=== PATIENT | female | born 1965 | race Caucasian/White ===

== ENCOUNTER 2023-09-18 13:16 | Inpatient (IN) | payer OTHER, SELFPAY ==
[2023-09-18] VITALS (11 sets, daily range): BP systolic 96–162; BP diastolic 64–108; BMI 28.6; BMI 28.8
[2023-09-18 06:26] LABS: % Basophils 0.4 % (0-2); % Eosinophils 0.6 % (0-6); % Immature Granulocytes 0.4 % (0-0.5); % Lymphocytes 15.7 % (20.5-51.1); % Neutrophils 73.9 % (42.2-75.2); Absolute Basophils 0.1 10^3/uL (0-0.2); Absolute Eosinophils 0.1 10^3/uL (0-0.7); Absolute Immature Granulocytes 0.1 10^3/uL (0-0.05); Absolute Monocytes 1.1 10^3/uL (0.1-0.6); Absolute Neutrophils 9.3 10^3/uL (1.4-6.5); Hematocrit 40.1 % (37.0-47.0); Hemoglobin 12.8 g/dL (12.0-16.0); Mean Corp Hgb Conc. 31.9 g/dL (33.0-37.0); Mean Corpuscular Hgb 24.5 pg (27.0-31.0); Mean Corpuscular Volume 76.7 fL (81.0-99.0); Mean Platelet Volume 8.9 fL (7.4-10.4); Nucleated Red Blood Cells % 0 %; Platelet Count 338 10^3/uL (130-400); Red Blood Cell Count 5.23 10^6/uL (4.20-5.40); Red Cell Dist. Width 15.5 % (11.5-14.5); White Blood Cell Count 12.5 10^3/uL (4.8-10.8)
[2023-09-18 06:33] LABS: ALT (SGPT) 17 U/L (0-35); AST (SGOT) 24 U/L (14-36); Albumin 4.3 g/dl (3.5-5.0); Alkaline Phosphatase 89 U/L (38-126); Blood Urea Nitrogen 12 mg/dl (7-17); Calcium 9.8 mg/dl (8.4-10.2); Carbon Dioxide 28 mmol/L (22-30); Chloride 103 mmol/L (98-107); Glucose 132 mg/dl (70-99); Potassium 4.5 mmol/L (3.5-5.1); Sodium 136 mmol/L (135-145); Total Bilirubin 1.8 mg/dl (0.2-1.3); Total Protein 7.3 g/dl (6.3-8.2); eGFR > 60.00
--- NOTE | 2023-09-18 06:50 | ED.GENMED ---
History of Present Illness
General
Chief Complaint: Abdominal Pain
Source: patient
Exam Limitations: none
Time Seen by Provider: 09/18/23 06:50
Nursing documentation reviewed up to this point in time: agreed with
Travel History
Have you had any contact with someone who has COVID-19?: No
Do you have any symptoms of coronavirus? Fever > 100 degrees, chills, cough, shortness of breath, sore throat, loss of taste or smell, muscle aches, or headache?: No
History of Present Illness
History of Present Illness:
58-year-old female with history of abdominoplasty 8 yrs ago, diverticulitis Presents today she had 2 days of lower abdominal pain. It comes in waves, it was 10 out of 10 earlier this morning but now 7/10. Her last BM was 8:00 last night and
normal. She states her temperature was 100.5 last night with chills. She denies nausea or vomiting. Denies chest pain or trouble breathing.
Past History
Past History
ED Past Medical History: Other (diverticulitis)
ED Past Surgical History: Other (abdominoplasty)
Social History
Tobacco: Non-smoker
Alcohol: Occasional
Personal:
Living: with family
Employment: Employed
Review of Systems
Review of Systems
Allergies reviewed?: Yes
All Other Systems: ROS reviewed and negative except as documented in HPI and ROS
Constitutional: Reports fever and chills
Respiratory: Denies trouble breathing
Cardiac: Denies chest pain
ABD/GI: Reports abdominal pain; Denies nausea, vomiting, diarrhea, bloody stools or black stools
: Denies dysuria, frequency, flank pain, difficulty voiding or urgency
Musculoskeletal: Reports no symptoms
Skin: Reports no symptoms
Neurological: Reports no symptoms
Phy Exam
Physical Exam
Physical Exam:
GENERAL: No acute distress. A&Ox3.
CONSTITUTIONAL: Afebrile.
EYES:clear, conjunctivae normal
ENMT: moist mucus membranes, Pharynx nl
RESPIRATORY: Regular respirations, nonlabored, lungs clear.
CARDIOVASCULAR: Regular rate and rhythm, no murmurs, no rubs.
GI: Soft, generally moderately tender, normal BS
MUSCULOSKELETAL: Moves with ease. Well perfused.
SKIN: Warm, dry, pink
PSYCH: Normal mood and affect. Well kept, interactive and appropriate
NEUROLOGIC: Awake, alert and oriented. No focal neurological deficits
Course
Orders/Labs/Results
Orders:
Orders
09/18/23 Breakfast
NPO
Allow oral meds: Yes
Allow clear liquids: No
09/18/23 06:12
Complete Blood Count/With Diff Urgent
Comprehensive Metabolic Panel Urgent
Lipase Urgent
Comment: ADD ON
Urinalysis Reflex To Culture Urgent
Date Specimen was Collected: 09/18/23
Time Specimen was Collected: 06:04
09/18/23 06:56
Iohexol [Omnipaque] See Protocol PO NOW STA
09/18/23 06:57
CT Abd/pel W Iv And Oral Contr Urgent
Comment:
Reason For Exam: lower abd pain, hx diverticulitis
0.9% Sodium Chloride 1000 ml [Nss] 1,000 ml IV BOLUS
Ketorolac [Toradol] 15 mg IV NOW STA
09/18/23 06:58
Add On- LAB Urgent
Tests Added?: Lipase
09/18/23 10:36
Piperacillin/Tazo 3.375 Gram [Zosyn] 3.375 gram in 50 ml IV NOW
09/18/23 12:17
Admit/Transfer Patient As Directed
Co-Sign Provider:
Level of Care: Inpatient admission
Assign to:: Medical/Surgical
Physician / Group: shadi kirby
Diagnosis: diverticulitis
Reason for Hospitalization: diverticulitis
Expected length of stay greater than two midnights?: Yes
ELOS- Estimated Length of Stay in days: 3
I certify the patient meets the requirements for IP care: Yes
09/18/23 12:18
Code Status As Directed
Resuscitation Status: Full Code
09/18/23 13:03
Stool Culture Routine
SHAYE Source: Feces/Stool
Specimen Description:
09/18/23 14:00
MetroNIDAZOLE 500 MG/100 ML [Flagyl 500 mg] 100 ml IV Q8H
09/18/23 14:22
Acetaminophen [Tylenol] 650 mg PO Q4HPRN PRN
HYDROmorphone [Dilaudid] 0.5 mg IV Q4HPRN PRN
Lactated Ringers [Lr] 1,000 ml IV 80 mls/hr
09/18/23 14:22
Activity As Directed
Activity Level: As Tolerated
Pneumatic Compression Sleeves As Directed
Type: Knee high
Vital Signs As Directed
Frequency: Per unit guidelines
DX Deep Vein Thrombosis Video Routine
09/18/23 16:00
CefTRIAXone [Rocephin] 1,000 mg IV Q24H
09/19/23 06:00
Basic Metabolic Panel IN AM
Complete Blood Count/No Diff IN AM
09/20/23 06:00
Basic Metabolic Panel IN AM
Complete Blood Count/No Diff IN AM
09/21/23 06:00
Basic Metabolic Panel IN AM
Complete Blood Count/No Diff IN AM
09/22/23 06:00
Basic Metabolic Panel IN AM
Complete Blood Count/No Diff IN AM
09/23/23 06:00
Basic Metabolic Panel IN AM
Complete Blood Count/No Diff IN AM
Abnormal Lab Results
09/18/23
06:12
WBC 12.5 H 10^3/uL
(4.8-10.8)
MCV 76.7 L fL
(81.0-99.0)
MCH 24.5 L pg
(27.0-31.0)
MCHC 31.9 L g/dL
(33.0-37.0)
RDW 15.5 H %
(11.5-14.5)
Abs Immat Gran (auto) 0.1 H 10^3/uL
(0-0.05)
Absolute Neuts (auto) 9.3 H 10^3/uL
(1.4-6.5)
Absolute Monos (auto) 1.1 H 10^3/uL
(0.1-0.6)
Lymphocytes % 15.7 L %
(20.5-51.1)
Glucose 132 H mg/dl
(70-99)
Total Bilirubin 1.8 H mg/dl
(0.2-1.3)
09/18/23 06:12
09/18/23 06:12
Vital Signs
Initial and Last Documented VS:
Initial Vital Signs
Temp Pulse Resp BP Pulse Ox
99.3 F 99 16 162/108 97
09/18/23 06:00 09/18/23 06:00 09/18/23 06:00 09/18/23 06:00 09/18/23 06:00
Last Documented Vital Signs
Temp Pulse Resp BP Pulse Ox
99.3 F 85 24 130/81 94
09/18/23 06:00 09/18/23 09:52 09/18/23 09:52 09/18/23 14:00 09/18/23 14:54
MDM/Problems Addressed
MDM/Problems Addressed:
58-year-old female with history of abdominoplasty 8 yrs ago, diverticulitis Presents today she had 2 days of lower abdominal pain. It comes in waves, it was 10 out of 10 earlier this morning but now 7/10. Her last BM was 8:00 last night and
normal. She states her temperature was 100.5 last night with chills. She denies nausea or vomiting. Denies chest pain or trouble breathing.
Temp 99.3
09/18/2023 0701 AM
CBC: WBC 12.5
CMP unremarkable
10:42 AM
Patient resting quietly with eyes closed
CAT scan abdomen pelvis with IV and p.o. contrast radiology report read: IMPRESSION:
1. Findings consistent with acute sigmoid diverticulitis..
2. Collection of stool adjacent to the sigmoid colon, best seen on coronal images 27-28, which may be within a large diverticulum or may be extraluminal, representing localized perforation. No drainable abscess is appreciated.
3. Wall thickening involving the sigmoid colon, likely reactive. Colonoscopy is recommended following resolution of the acute event, to completely exclude neoplastic wall thickening of the sigmoid colon.
4. Multiple calcified uterine fibroids.
Plan: Admit to hospitalist, colorectal surgeon consult in, IV antibiotics started.
Patient informed and is comfortable with this plan
*Critical Care Note
Total Time (30-74mins, 75-104mins- exclusive of procedures): Not Applicable
ED Attending Note
-
Portions of this chart may have been created with voice recognition software.� Occasional wrong word or��sound alike� substitutions may have occurred due to the inherent limitations of voice recognition software.
Discharge Plan
Departure
Patient Disposition: Admit
Date of Disposition: 09/18/23
Time of Disposition: 10:39
Presentation/result/management discussed w/ accepting MD/DO: Hospitalist
Condition: Fair
Discharge Problem:
Acute diverticulitis
Interventions
Interventions:
*Risk Screen - Suicide Last Done: 09/18/23 06:00
*General Assessment Last Done: 09/18/23 07:41
*Neglect/Abuse Screening Last Done: 09/18/23 06:00
ED- Fall Risk Assessment Last Done: 09/18/23 07:41
*ED COVID-19 Vaccine History Last Done: 09/18/23 06:00
*Nursing Disposition Last Done: 09/18/23 14:26
UB-Ircxcn-Ophwnrdfta Assessment Last Done: 09/18/23 07:41
Discharge Date and Time
Discharge Date/Time: 09/18/23 14:26
[2023-09-18 07:26] LABS: Lipase 148 U/L (23-300)
[2023-09-18] MEDS: NSS 1000 IV (07:43)
[2023-09-18] MEDS: OMNIPAQUE 50 ML PO (07:44)
[2023-09-18] MEDS: TORADOL 15 MG IV (07:44)
[2023-09-18 07:54] LABS: Urine Albumin Negative (Neg - Trace); Urine Bilirubin Negative (Negative); Urine Character Clear (Clear); Urine Color Straw; Urine Glucose Negative (Negative); Urine Ketone Negative (Negative); Urine Leukocyte Negative (Negative); Urine Nitrite Negative (Negative); Urine Occult Blood Negative (Negative); Urine Urobilinogen Negative (Neg - 1+)
--- NOTE | 2023-09-18 12:05 | HPS.HSE ---
Family Physician
-
Family Physician: Nils Lizarraga
Chief Complaint
-
Lower abdominal pain
History of Present Illness
58-year-old female with history of abdominoplasty 8 yrs ago, diverticulitis Presents today she had 2 days of lower abdominal pain. Patient stated it is a constant pain. She took Tylenol on Thursday and with no much relief in her
symptoms. Denied any nausea vomiting diarrhea. She had a fever 100.5 and chills last night. Patient denied any headache dizziness or syncopal episode. Patient denied any runny nose nasal congestion cough. Patient denied any chest pain and short
of breath. Patient denied dysuria, hematuria.
CT of abdomen pelvis with acute diverticulitis. Patient received fluids and Zosyn in the ER. Admitted for further management
Medical History
Past Medical History
Past Medical History: Reports Other
Additional Past Medical History:
Diverticulitis
Past Surgical History: Reports Other
Additional Past Surgical History:
Abdominoplasty
Social History
Tobacco: Non-smoker
Alcohol: Occasional
Drug: None
Employment: Employed
Family History
Family History: Not pertinent
Allergies / Home Medications
Allergies reflects when Allergies were last updated in [facility].
Home Medications with original date entered in [facility]
Allergy/Medication List:
Allergies
Allergy/AdvReac Type Severity Reaction Status Date / Time
No Known Allergies Allergy Unverified 09/18/23 05:59
Home Medications
acetaminophen 500 mg tablet (Tylenol Extra Strength) 500 mg PO DAILYPRN PRN mild pain 09/18/23
cholecalciferol (vitamin D3) 1 tab PO DAILY 09/18/23
magnesium 1 tab PO DAILY 09/18/23
therapeutic multivitamin 1 tab PO DAILY 09/18/23
Review of Systems
-
Constitutional: Reports No Symptoms
EENT: Reports No Symptoms
Respiratory: Reports No Symptoms
Cardiac: Reports No Symptoms
Abdomen/GI: Reports Abdominal Pain
: Reports No Symptoms
Musculoskeletal: Reports No Symptoms
Skin: Reports No Symptoms
Neurological: Reports No Symptoms
Endocrine: Reports No Symptoms
Hematologic/Lymphatic: Reports No Symptoms
Psych: Reports No Symptoms
Physical Exam
Vital Signs
Vital Signs
Temp Pulse Resp BP Pulse Ox
99.3 F 68 17 114/73 97
09/18/23 06:00 09/18/23 09:15 09/18/23 09:15 09/18/23 09:00 09/18/23 09:15
Physical Exam
General: Well Developed, Well Nourished and No Apparent Distress
HEENT: NormoCephalic, Moist mucous membranes and Atraumatic
Respiratory: Clear
Cardiac: S1/S2 and Regular Rhythm; No Murmur or Rub
GI: Soft, Non Tender, Non Distended and Normal Bowel Sounds; No Organomegaly
Rectal: Deferred by Provider
Musculoskeletal: No Clubbing, No Cyanosis and No Edema
Skin: No Rash
Neuro: AO x 3 and Nonfocal/grossly intact
Psych: Calm
Laboratory Results
-
09/18/23 06:12
09/18/23 06:12
Laboratory Results
Total Bilirubin 1.8 mg/dl (0.2-1.3) H 09/18/23 06:12
AST 24 U/L (14-36) 09/18/23 06:12
ALT 17 U/L (0-35) 09/18/23 06:12
Alkaline Phosphatase 89 U/L (38-126) 09/18/23 06:12
Lipase 148 U/L (23-300) 09/18/23 06:12
Data Reviewed
-
CT Scan: Report Reviewed by me
Lab Data: Labs Reviewed by me
Impression/Plan
-
# Acute diverticulitis
-WBC 12.5
-CT abdomen pelvis with impression of Findings consistent with acute sigmoid diverticulitis..
2. Collection of stool adjacent to the sigmoid colon, best seen on coronal images 27-28, which may be within a large diverticulum or may be extraluminal, representing localized perforation. No drainable abscess is appreciated.
3. Wall thickening involving the sigmoid colon, likely reactive. Colonoscopy is recommended following resolution of the acute event, to completely exclude neoplastic wall thickening of the sigmoid colon.
4. Multiple calcified uterine fibroids.
-IV Flagyl and ceftriaxone
-Tylenol,Dilaudid as needed for fever and pain
-N.p.o.
-Fluids continue for hydration
-Colorectal consulted
# DVT prophylaxis
-SCD
# CODE STATUS
-Full code
[2023-09-18] MEDS: ZOSYN 50 IV (12:11)
--- NOTE | 2023-09-18 14:46 | CON.CRS ---
Consultation
-
Date/Time Consultation Requested: 09/18/2023, 10:40
Date/Time Consultation Performed: 09/18/2023, 1500
Requesting Provider: Ashtyn Braden NP
Performing Provider: Jemal Garcia MD
Reason for Consultation: diverticulitis
Medical History
-
Chief Complaint: abdominal pain
History of Present Illness:
48-year-old female with a history of abdominoplasty 8 years ago presents the emergency department complaining of 2 days of lower abdominal pain. The patient states the pain has been constant. She had a fever of 100.5 and chills last night. Her
last bowel movement was last night and not bloody. She typically goes twice a day. She had nausea when her pain was severe this morning but has resolved. She states her pain has improved since admission.
She has had two prior attacks of diverticulitis in the past, about 5-6 years ago and again 2 years ago. She was treated as an outpatient with oral antibiotics and did not have CT imaging either time. Her last colonoscopy was a few years ago at [facility] and she had 2 polyps that were benign and diverticulosis.
CT of the abdomen and pelvis shows acute sigmoid diverticulitis, collection of stool adjacent to the sigmoid colon best seen on coronal images 27-28, which may be within a large diverticulum or may be extraluminal, representing localized
perforation. No drainable abscess is appreciated. Wall thickening involving the sigmoid colon, likely reactive. Colonoscopy is recommended following resolution of the acute event, to completely exclude neoplastic wall thickening of the sigmoid colon.
Her WBC on admission is 12.5. Her vital signs are normal. She has been started on IV Zosyn. We have been consulted for further surgical opinion.
Past Medical History
Past Medical History: Other (Diverticulitis)
Past Surgical History: Other (Abdominoplasty)
Social History
Tobacco: Non-Smoker
Alcohol: Occasional
Drug: None
Family History
Family History: Reviewed & Not Pertinent
Allergies / Home Medications
Allergy/AdvReac Type Severity Reaction Status Date / Time
No Known Allergies Allergy Unverified 09/18/23 05:59
�Medication �Instructions �Recorded �Confirmed �Type
acetaminophen 500 mg tablet 500 mg PO DAILYPRN PRN mild pain 09/18/23 09/18/23 History
(Tylenol Extra Strength)
cholecalciferol (vitamin D3) 1 tab PO DAILY Supplement 09/18/23 09/18/23 History
magnesium 1 tab PO DAILY Supplement 09/18/23 09/18/23 History
therapeutic multivitamin 1 tab PO DAILY Supplement 09/18/23 09/18/23 History
Review of Systems
-
History Source: Patient
Constitutional: Fever and Chills
Abdomen/GI: Nausea
A 10 point review of systems was completed, and was negative except as per HPI.
Physical Exam
Vital Signs
Temp 99.3 F 09/18/23 06:00
Pulse 85 09/18/23 09:52
Resp Rate 24 09/18/23 09:52
Blood pressure 130/81 09/18/23 14:00
SaO2 94 09/18/23 14:15
09/17/23 09/18/23 09/19/23
06:59 06:59 06:59
Actual Weight 74.4 kg
Body Mass Index (BMI) 28.6
Lab Results / Allergies
09/18/23 06:12
09/18/23 06:12
WBC 12.5 10^3/uL (4.8-10.8) H 09/18/23 06:12
Hgb 12.8 g/dL (12.0-16.0) 09/18/23 06:12
Hct 40.1 % (37.0-47.0) 09/18/23 06:12
Plt Count 338 10^3/uL (130-400) 09/18/23 06:12
Abs Immat Gran (auto) 0.1 10^3/uL (0-0.05) H 09/18/23 06:12
Neutrophils % 73.9 % (42.2-75.2) 09/18/23 06:12
Allergy/AdvReac Type Severity Reaction Status Date / Time
No Known Allergies Allergy Unverified 09/18/23 05:59
Physical Exam
General: Well Developed and Well Nourished
GI: Soft
Neuro: AO x 3
Psych: Calm
Data Reviewed
-
CT Scan: Image Personally Visualized and interpreted and Report Reviewed by me
Labs: Labs Reviewed by me and Discussed with Physician
Old Records: Requested
Assessment / Plan
-
Assessment: 58-year-old female with sigmoid diverticulitis
Plan:
1. Continue n.p.o. for now.
2. Continue IV Zosyn.
3. Trend labs and vital signs.
4. No need for urgent surgery at this time. If she worsens she will require a colectomy with colostomy creation.
[2023-09-18] MEDS: FLAGYL 500 MG 100 IV ×2 (14:55→21:44)
[2023-09-18] MEDS: LR 1000 IV (14:57)
[2023-09-18] MEDS: FLUSH (NSS) 1 FLUSH IV ×2 (15:12→15:23)
[2023-09-18] MEDS: ROCEPHIN 1000 MG IV (15:12)
[2023-09-18] MEDS: STERILE WATER FOR INJECTION 10 ML IV (15:13)
--- NOTE | 2023-09-18 15:19 | W.PN.UPDATE ---
Update Note
Progress Note Update
I saw and examined the patient.
The RUSSIAN LANGUAGE PROFESSOR or PA's note was reviewed and I agree with the note
This note serves as an addendum to the H&P by Tavia Cagle on 09/17.
Comment:
58-year-old female with history of abdominoplasty 8 yrs ago, diverticulitis, recent c-scope 1.5 years ago with two benign polyps - now Presents today she had 2 days of lower abdominal pain. It is constant, fever of 100.5 and chills. Had 1 bowel
movement, appeared to be formed. Afebrile, normotensive, heart rate 99 upon admission. Labs noted to have white count 2.5, bilirubin 1.8, alk phos 89, CT imaging evidence of sigmoid diverticulitis, large diverticulum. Plan�continue ceftriaxone,
Flagyl, fluids. Stool cultures. N.p.o. for now. Pain control.
[2023-09-18] MEDS: DILAUDID 0.5 MG IV (19:49)
[2023-09-19 01:35] VITALS: BP 97/56
[2023-09-19] MEDS: FLAGYL 500 MG 100 IV ×3 (05:21→22:19)
[2023-09-19] MEDS: TYLENOL 650 MG PO (05:25)
[2023-09-19] MEDS: LR 1000 IV ×2 (06:27→18:17)
[2023-09-19 07:23] LABS: Hematocrit 34.1 % (37.0-47.0); Hemoglobin 10.8 g/dL (12.0-16.0); Mean Corp Hgb Conc. 31.7 g/dL (33.0-37.0); Mean Corpuscular Hgb 24.4 pg (27.0-31.0); Mean Platelet Volume 8.4 fL (7.4-10.4); Platelet Count 238 10^3/uL (130-400); Red Blood Cell Count 4.43 10^6/uL (4.20-5.40); Red Cell Dist. Width 15.4 % (11.5-14.5); White Blood Cell Count 7.4 10^3/uL (4.8-10.8)
[2023-09-19 07:30] VITALS: BP 117/65
[2023-09-19 07:53] LABS: Blood Urea Nitrogen 12 mg/dl (7-17); Calcium 8.9 mg/dl (8.4-10.2); Carbon Dioxide 26 mmol/L (22-30); Chloride 106 mmol/L (98-107); Estimated Creatinine Clearance 97 ml/min; Glucose 86 mg/dl (70-99); Potassium 4.1 mmol/L (3.5-5.1); Sodium 134 mmol/L (135-145); eGFR > 60.00
--- NOTE | 2023-09-19 14:13 | W.PN.HOSP.TC ---
Today's Communication/Plan
-
CLD
Cont abx
Assessment / Plan
Assessment / Plan
Physical Exam
General: Well Developed, Well Nourished and No Apparent Distress
HEENT: NormoCephalic, Moist mucous membranes and Atraumatic
Respiratory: Clear
Cardiac: S1/S2 and Regular Rhythm; No Murmur or Rub
GI: Soft, diffuse tenderness - improved from yest, Non Distended and Normal Bowel Sounds; No Organomegaly
Rectal: Deferred by Provider
Musculoskeletal: No Clubbing, No Cyanosis and No Edema
Skin: No Rash
Neuro: AO x 3 and Nonfocal/grossly intact
Psych: Calm
# Acute diverticulitis
-IV Flagyl and ceftriaxone
-Tylenol,Dilaudid as needed for fever and pain
-adv to cld
-Fluids continue for hydration
-c-scope outpt
-stool cultures
#Hyponatremia
-mild
-ctm
# DVT prophylaxis
hsq
# CODE STATUS
-Full code
Anticipated Discharge: 24 - 48 hours
Subjective/Interval History
-
Date of Service: September 19, 2023
Pain much improved
Objective Data
-
Labs:
Laboratory Results
09/19/23
07:11
WBC 7.4
Hgb 10.8 L
Hct 34.1 L
Plt Count 238 D
Sodium 134 L
Potassium 4.1
Chloride 106
Carbon Dioxide 26
BUN 12
Creatinine 0.6
Glucose 86
Calcium 8.9
Vital Signs:
Vital Signs
Temp Pulse Resp BP Pulse Ox
97.8 F 72 16 117/65 94
09/19/23 07:30 09/19/23 07:30 09/19/23 07:30 09/19/23 07:30 09/19/23 07:30
I&O
09/18/23 09/19/23 09/20/23
06:59 06:59 06:59
Intake Total 100 / 100
Balance 100 / 100
Review of Systems
-
History Source: Patient
All other systems: Not reviewed unless documented
Data Reviewed
-
CT Scan: Image personally visualized and interpreted and Report Reviewed by me
Labs: Labs Reviewed by me
[2023-09-19 15:00] VITALS: BP 117/70
[2023-09-19] MEDS: STERILE WATER FOR INJECTION 10 ML IV (16:10)
[2023-09-19] MEDS: ROCEPHIN 1000 MG IV (16:10)
[2023-09-19] MEDS: FLUSH (NSS) 1 FLUSH IV ×2 (16:10→16:16)
[2023-09-19] MEDS: HEPARIN 5000 UNITS SC (16:14)
[2023-09-19 20:21] VITALS: BP 145/94
--- NOTE | 2023-09-19 20:22 | TRANSFER ---
Pt transferred to private room pending Norovirus results. AAOx3, no complains of pain, IVF as ordered.
[2023-09-19 23:52] VITALS: BP 137/70
[2023-09-20] MEDS: HEPARIN 5000 UNITS SC (00:51)
[2023-09-20] MEDS: FLAGYL 500 MG 100 IV ×2 (05:24→15:20)
[2023-09-20] MEDS: ZOFRAN 4 MG IV (05:25)
[2023-09-20 07:57] VITALS: BP 124/71
[2023-09-20 08:20] LABS: Hematocrit 32.9 % (37.0-47.0); Hemoglobin 10.6 g/dL (12.0-16.0); Mean Corp Hgb Conc. 32.2 g/dL (33.0-37.0); Mean Corpuscular Hgb 24.4 pg (27.0-31.0); Mean Corpuscular Volume 75.8 fL (81.0-99.0); Mean Platelet Volume 8.8 fL (7.4-10.4); Platelet Count 281 10^3/uL (130-400); Red Blood Cell Count 4.34 10^6/uL (4.20-5.40); White Blood Cell Count 5.7 10^3/uL (4.8-10.8)
[2023-09-20 08:43] LABS: Blood Urea Nitrogen 8 mg/dl (7-17); Calcium 8.9 mg/dl (8.4-10.2); Carbon Dioxide 25 mmol/L (22-30); Chloride 106 mmol/L (98-107); Estimated Creatinine Clearance 97 ml/min; Glucose 93 mg/dl (70-99); Sodium 134 mmol/L (135-145); eGFR > 60.00
[2023-09-20] MEDS: LR IV ×2 (09:02→16:42)
[2023-09-20] MEDS: HEPARIN SC ×2 (09:24→16:43)
--- NOTE | 2023-09-20 11:15 | CM ---
Initial Assessment completed with patient who lives alone in a 2 story condo plus basement with 10 steps to enter. 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 No DME and no in-home services. No psychiatric hospitalizations. She has 3 children
as a support system. [facility] in [place] and PCP is Dr. Lizarraga. ANTICIPATE NO SKILLED NEEDS AT DISCHARGE.
--- NOTE | 2023-09-20 12:09 | W.PN.HOSP.TC ---
Addendum entered and electronically signed by Albino Servin MD 09/21/23 15:49:
[id number]
Addendum entered and electronically signed by Albino Servin MD 09/20/23 15:55:
Symptoms improved, tolerating low residue diet
Continue cefdinir, Flagyl for additional 8 days to complete 10-day course
Follow-up GI, CRS, PCP outpatient
BMP in 5 days with PCP for
Original Note:
Today's Communication/Plan
-
adv to lrd
monitor - possible dc today v zaid
Assessment / Plan
Assessment / Plan
Physical Exam
General: Well Developed, Well Nourished and No Apparent Distress
HEENT: NormoCephalic, Moist mucous membranes and Atraumatic
Respiratory: Clear
Cardiac: S1/S2 and Regular Rhythm; No Murmur or Rub
GI: Soft, diffuse tenderness - improved from yest, Non Distended and Normal Bowel Sounds; No Organomegaly
Rectal: Deferred by Provider
Musculoskeletal: No Clubbing, No Cyanosis and No Edema
Skin: No Rash
Neuro: AO x 3 and Nonfocal/grossly intact
Psych: Calm
# Acute diverticulitis
-IV Flagyl and ceftriaxone
-Tylenol,Dilaudid as needed for fever and pain
-adv to LRD - had some nausea and mild diarrhea yest - if improved and tolerated can dc today v tomorrow
-Fluids continue for hydration
-c-scope outpt
-stool cultures - ngtd
#Hyponatremia
-mild
-ctm
# DVT prophylaxis
hsq
# CODE STATUS
-Full code
Anticipated Discharge: Within 24 hours
Subjective/Interval History
-
Date of Service: September 20, 2023
abd pain improved; advanced to LRD -
Objective Data
-
Labs:
Laboratory Results
09/20/23
07:41
WBC 5.7
Hgb 10.6 L
Hct 32.9 L
Plt Count 281
Sodium 134 L
Potassium 4.0
Chloride 106
Carbon Dioxide 25
BUN 8
Creatinine 0.6
Glucose 93
Calcium 8.9
Vital Signs:
Vital Signs
Temp Pulse Resp BP Pulse Ox
97.5 F 61 17 124/71 98
09/20/23 07:57 09/20/23 07:57 09/20/23 07:57 09/20/23 07:57 09/20/23 07:57
I&O
09/19/23 09/20/23 09/21/23
06:59 06:59 06:59
Intake Total 100 / 100 3660 / 3660
Balance 100 / 100 3660 / 3660
Review of Systems
-
History Source: Patient
All other systems: Not reviewed unless documented
Data Reviewed
-
CT Scan: Image personally visualized and interpreted and Report Reviewed by me
Labs: Labs Reviewed by me
[2023-09-20 15:55] VITALS: BP 109/67
--- NOTE | 2023-09-20 16:00 | W.DS.TRANS ---
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
-
Discharge Instructions:
Discharge Diagnosis/Procedures
# Acute diverticulitis
Diet Low Residue
Activity As tolerated
Blood Work bmp in 1 week with pcp
Instructions: Diverticulitis (DC)
Stand-Alone Forms:
Changes to Home Medications: Yes
Discharge Medications:
DC Medications w/original date entered in [employer]
acetaminophen 500 mg tablet (Tylenol Extra Strength) 500 mg PO DAILYPRN PRN mild pain 09/18/23
cholecalciferol (vitamin D3) 1 tab PO DAILY Supplement 09/18/23
magnesium 1 tab PO DAILY Supplement 09/18/23
therapeutic multivitamin 1 tab PO DAILY Supplement 09/18/23
cefdinir 300 mg capsule 300 mg PO Q12H 8 days #16 caps 09/20/23
metronidazole 500 mg tablet 500 mg PO Q8H 8 days #24 tabs 09/20/23
Home Medication Changes
cefdinir 300 mg capsule 300 mg PO Q12H 8 days #16 caps 09/20/23
metronidazole 500 mg tablet 500 mg PO Q8H 8 days #24 tabs 09/20/23
Pending Results: No
--- NOTE | 2023-09-20 16:02 | W.DS.TRANS ---
DC Summary - [employer]
-
Discharge Instructions:
Discharge Diagnosis/Procedures
# Acute diverticulitis
Diet Low Residue
Activity As tolerated
Blood Work bmp in 1 week with pcp
Instructions: Diverticulitis (DC)
Stand-Alone Forms:
Changes to Home Medications: Yes
Discharge Medications:
DC Medications w/original date entered in [employer]
acetaminophen 500 mg tablet (Tylenol Extra Strength) 500 mg PO DAILYPRN PRN mild pain 09/18/23
cholecalciferol (vitamin D3) 1 tab PO DAILY Supplement 09/18/23
magnesium 1 tab PO DAILY Supplement 09/18/23
therapeutic multivitamin 1 tab PO DAILY Supplement 09/18/23
cefdinir 300 mg capsule 300 mg PO Q12H 8 days #16 caps 09/20/23
metronidazole 500 mg tablet 500 mg PO Q8H 8 days #24 tabs 09/20/23
Home Medication Changes
cefdinir 300 mg capsule 300 mg PO Q12H 8 days #16 caps 09/20/23
metronidazole 500 mg tablet 500 mg PO Q8H 8 days #24 tabs 09/20/23
Pending Results: No
--- NOTE | 2023-09-20 16:34 | CM ---
Patient has been medically cleared for discharge to home with no additional skilled services. Patient has arranged for transport home.
[2023-09-20] MEDS: FLUSH (NSS) IV ×2 (16:41→16:42)
[2023-09-20] MEDS: STERILE WATER FOR INJECTION IV (16:42)
[2023-09-20] MEDS: ROCEPHIN IV (16:42)
== END 2023-09-20 18:53 | disposition home or self-care (01) | DRG 392 ==
LOC: 2 NORTH 13:16
PROVIDERS: Registered Nurse; Student in an Organized Health Care Education/Training Program; ADMITTING PHYSICIAN Internal Medicine; EMERGENCY PHYSICIAN Emergency Medicine; FAMILY PHYSICIAN Family Medicine; OTHER PHYSICIAN Physician Assistant
DX: K57.32 Diverticulitis of large intestine without perforation or abscess without bleeding (principal); E87.1 Hypo-osmolality and hyponatremia
CPT/HCPCS: 74177; 80048; 80053; 81003; 83690; 85025; 85027; 87045; 87046; 87077; 87427; 87798; 96361; 96365; 96375; 99285; Q9967

== ENCOUNTER 2023-10-21 20:16 | Inpatient (IN) | payer OTHER, SELFPAY ==
[2023-10-21] VITALS (10 sets, daily range): BP systolic 114–167; BP diastolic 66–108; BMI 27.5; BMI 27.8
[2023-10-21] MEDS: NSS 1000 IV (13:37)
[2023-10-21 13:56] LABS: % Basophils 0.5 % (0-2); % Eosinophils 0.5 % (0-6); % Immature Granulocytes 0.4 % (0-0.5); % Lymphocytes 11.2 % (20.5-51.1); % Monocytes 6.9 % (1.7-9.3); % Neutrophils 80.5 % (42.2-75.2); Absolute Basophils 0.1 10^3/uL (0-0.2); Absolute Eosinophils 0.1 10^3/uL (0-0.7); Absolute Immature Granulocytes 0.1 10^3/uL (0-0.05); Absolute Lymphocytes 1.7 10^3/uL (1.2-3.4); Absolute Monocytes 1.1 10^3/uL (0.1-0.6); Absolute Neutrophils 12.3 10^3/uL (1.4-6.5); Hematocrit 41.9 % (37.0-47.0); Hemoglobin 13.4 g/dL (12.0-16.0); Mean Corpuscular Hgb 24.4 pg (27.0-31.0); Mean Corpuscular Volume 76.2 fL (81.0-99.0); Mean Platelet Volume 8.6 fL (7.4-10.4); Nucleated Red Blood Cells % 0 %; Platelet Count 359 10^3/uL (130-400); Red Cell Dist. Width 16.9 % (11.5-14.5); White Blood Cell Count 15.3 10^3/uL (4.8-10.8)
--- NOTE | 2023-10-21 14:12 | ED.GENMED ---
History of Present Illness
General
Chief Complaint: Abdominal Pain
Time Seen by Provider: 10/21/23 13:23
Travel History
Have you had any contact with someone who has COVID-19?: No
Do you have any symptoms of coronavirus? Fever > 100 degrees, chills, cough, shortness of breath, sore throat, loss of taste or smell, muscle aches, or headache?: No
History of Present Illness
History of Present Illness:
58-year-old female history of diverticulitis, C. difficile presenting with left lower quadrant abdominal pain worsening starting at 4 AM this morning. Patient also reports nonbloody diarrhea 15-20 episodes today. Patient reports nausea but no
vomiting. Patient also reports frequent urination starting yesterday. Patient states that she was diagnosed with diverticulitis 1 month ago and completed course of antibiotics. Shortly after, patient was diagnosed with C. Difficile for which she
completed course of oral vancomycin on 10/16. Patient denies fever, chills.
Past History
Past History
ED Past Medical History: Other (diverticulitis)
ED Past Surgical History: Other (abdominoplasty)
Social History
Tobacco: Non-smoker
Alcohol: Occasional
Personal:
Living: with family
Employment: Employed
Phy Exam
Physical Exam
Physical Exam:
General: Alert, no acute distress
Head: NCAT
Eyes: clear conjunctiva
Neck: supple
Cardiac: regular rate and rhythm, no murmur
Lungs: clear to auscultation bilaterally. No wheezes, rales, or rhonchi. Speaking full unlabored sentences. No respiratory distress.
Abdomen: soft, nondistended left lower quadrant and suprapubic tenderness to palpation. No rebound or guarding.
MSK: no lower extremity edema bilaterally. No deformity
Skin: warm, dry
Neuro: Alert and oriented x3. no focal deficits
Course
Orders/Labs/Results
Orders:
Orders
10/21/23 13:29
Complete Blood Count/With Diff Urgent
Comprehensive Metabolic Panel Urgent
Lipase Urgent
Magnesium Urgent
Comment: ADD ON
10/21/23 13:37
0.9% Sodium Chloride 1000 ml [Nss] 1,000 ml IV BOLUS
10/21/23 14:08
Abdomen/Pelvis w Contrast CT [CT Abd/pelvis W Iv Cont] Urgent
Comment:
Reason For Exam: llq tenderness
10/21/23 Dinner
Clear Liquid
10/21/23 15:10
Urinalysis Reflex To Culture Urgent
Date Specimen was Collected: 10/21/23
Time Specimen was Collected: 13:38
Urine Microscopic Reflex Cult Urgent
C DIFF [C difficile Antigen & Toxins] Urgent
SHAYE Source: Feces/Stool
Specimen Description:
Date Specimen was Collected: 10/21/23
Time Specimen was Collected: 15:09
Stool Culture Urgent
SHAYE Source: Feces/Stool
Specimen Description:
Date Specimen was Collected: 10/21/23
Time Specimen was Collected: 15:09
10/21/23 15:48
Ketorolac [Toradol] 15 mg .ROUTE .STK-MED ONE
Ketorolac [Toradol] 15 mg IV NOW STA
10/21/23 15:49
Ketorolac [Toradol] 15 mg IV NOW STA
10/21/23 18:39
Ampicillin/Sulbactam 1.5 G [Unasyn] 1.5 gm 0.9% Sodium Chloride [Nss] 50 ml IV NOW
10/21/23 18:41
Fidaxomicin [Dificid] 200 mg PO NOW STA
10/21/23 18:44
Morphine Sulfate 4 mg IV NOW STA
Ondansetron Injectable [Zofran] 4 mg IV NOW STA
10/21/23 19:32
Admit/Transfer Patient As Directed
Co-Sign Provider:
Level of Care: Inpatient admission
Assign to:: Medical/Surgical
Physician / Group: Hemalatha Rodriguez
Diagnosis: Recurrent C. Diff; Acute Diverticulitis
Reason for Hospitalization: Recurrent C. Diff; Acute Diverticulitis
Expected length of stay greater than two midnights?: Yes
ELOS- Estimated Length of Stay in days: 3
I certify the patient meets the requirements for IP care: Yes
10/21/23 19:35
Code Status As Directed
Resuscitation Status: Full Code
10/21/23 19:42
Add On- LAB Routine
Tests Added?: magnesium
10/21/23 20:39
Acetaminophen [Tylenol] 650 mg PO Q4HPRN PRN
HYDROmorphone [Dilaudid] 0.5 mg IV Q3HPRN PRN
Ketorolac [Toradol] 15 mg IV Q6HPRN PRN
Lactated Ringers [Lr] 1,000 ml IV 100 mls/hr
10/21/23 20:39
INFECTIOUS DISEASE CONSULT Routine
Consulting Provider: Susi Villarreal
Was physician already notified: Yes
Activity As Directed
Activity Level: As Tolerated
Vital Signs As Directed
Frequency: Per unit guidelines
Weight As Directed
Frequency: Daily
DX Deep Vein Thrombosis Video Routine
10/22/23 02:00
Ampicillin/Sulbactam 3 G [Unasyn] 3 gm 0.9% Sodium Chloride 100 ml [Nss] 100 ml IV Q6H
10/22/23 06:00
Basic Metabolic Panel IN AM
Complete Blood Count/With Diff IN AM
Magnesium IN AM
10/22/23 08:00
Fidaxomicin [Dificid] 200 mg PO BID
10/22/23 18:00
Enoxaparin Sodium [Lovenox] 40 mg SC QPM
Abnormal Lab Results
10/21/23 10/21/23
13:29 15:10
WBC 15.3 H 10^3/uL
(4.8-10.8)
RBC 5.50 H 10^6/uL
(4.20-5.40)
MCV 76.2 L fL
(81.0-99.0)
MCH 24.4 L pg
(27.0-31.0)
MCHC 32.0 L g/dL
(33.0-37.0)
RDW 16.9 H %
(11.5-14.5)
Abs Immat Gran (auto) 0.1 H 10^3/uL
(0-0.05)
Absolute Neuts (auto) 12.3 H 10^3/uL
(1.4-6.5)
Absolute Monos (auto) 1.1 H 10^3/uL
(0.1-0.6)
Neutrophils % 80.5 H %
(42.2-75.2)
Lymphocytes % 11.2 L %
(20.5-51.1)
Glucose 103 H mg/dl
(70-99)
Leukocyte Esterase Rfl Trace A
(Negative)
10/21/23 13:29
10/21/23 13:29
Vital Signs
Initial and Last Documented VS:
Initial Vital Signs
Temp Pulse Resp BP Pulse Ox
99.1 F 84 18 167/108 95
10/21/23 12:38 10/21/23 12:38 10/21/23 12:38 10/21/23 12:38 10/21/23 12:38
Last Documented Vital Signs
Temp Pulse Resp BP Pulse Ox
98.8 F 96 18 137/72 99
10/21/23 21:05 10/21/23 21:05 10/21/23 21:05 10/21/23 21:05 10/21/23 21:05
Comment
Comment:
Patient presents to the Emergency Department with left lower quadrant and diarrhea
Number and Complexity of Problems Addressed at the Encounter
� Chronic conditions affecting care:
� Acute Exacerbation and/or Progression of Chronic Illness:
� Differential Diagnosis includes: Diverticulitis, colitis, UTI, C. difficile, viral syndrome
Amount and/or Complexity of Data to be Reviewed and Analyzed
� I performed an independent evaluation of and my interpretation is:
EKG:
CT:
Xrays:
Laboratory Studies: leukocytosis with left shift, UA negative for UTI, positive for cdiff
Other:
� Review of other/old records reveals: admitted 1 month ago for sigmoid diverticulitis
� Clinical information was obtained by an independent historian:
� Prescriptions/Medications Considered but not given:
� Further testing considered but not performed:
Risk of Complications and/or Morbidity or Mortality of Patient Management
� Social Determinants of health affecting care:
� Discussion with other providers (PCP, Hospitalists, Consultants, etc):
� Escalation of care including admission/observation vs risk of discharge considered: 58-year-old female history of diverticulitis, C. difficile presenting with left lower quadrant abdominal pain, urinary frequency and multiple bowel movements
starting earlier today. Workup concerning for distal descending diverticulitis, previous sigmoid diverticulitis improved. WBC 15 with left shift. + cdiff. Ordered unasyn for diverticulitis. Given recent history of cdiff and just completed oral
vancomycin, ordered fidamoxicin. Patient having significant pain, requiring morphine. Discussed with hospitalist who accepts for admission.
*Critical Care Note
Total Time (30-74mins, 75-104mins- exclusive of procedures): Not Applicable
ED Attending Note
-
Portions of this chart may have been created with voice recognition software.� Occasional wrong word or��sound alike� substitutions may have occurred due to the inherent limitations of voice recognition software.
Discharge Plan
Departure
Patient Disposition: Admit
Date of Disposition: 10/21/23
Time of Disposition: 19:03
Admit to: Med/Surg
Presentation/result/management discussed w/ accepting MD/DO: Hospitalist
Discharge Problem:
Acute diverticulitis, C. difficile diarrhea
Interventions
Interventions:
*Risk Screen - Suicide Last Done: 10/21/23 13:32
*General Assessment Last Done: 10/21/23 13:32
*Neglect/Abuse Screening Last Done: 10/21/23 13:32
ED- Fall Risk Assessment Last Done: 10/21/23 13:32
*ED COVID-19 Vaccine History Last Done: 10/21/23 12:38
*Nursing Disposition Last Done: 10/21/23 20:28
GW-Rvporo-Aoxihxhlaq Assessment Last Done: 10/21/23 13:32
Discharge Date and Time
Discharge Date/Time: 10/21/23 20:29
[2023-10-21 14:16] LABS: ALT (SGPT) 23 U/L (0-35); AST (SGOT) 31 U/L (14-36); Albumin 4.6 g/dl (3.5-5.0); Alkaline Phosphatase 85 U/L (38-126); Blood Urea Nitrogen 12 mg/dl (7-17); Carbon Dioxide 28 mmol/L (22-30); Chloride 102 mmol/L (98-107); Estimated Creatinine Clearance 81 ml/min; Glucose 103 mg/dl (70-99); Lipase 130 U/L (23-300); Potassium 4.1 mmol/L (3.5-5.1); Sodium 136 mmol/L (135-145); Total Bilirubin 1.3 mg/dl (0.2-1.3); Total Protein 7.5 g/dl (6.3-8.2); eGFR > 60.00
[2023-10-21 15:41] LABS: Urine Albumin Negative (Neg - Trace); Urine Bilirubin Negative (Negative); Urine Character Clear (Clear); Urine Color Yellow; Urine Glucose Negative (Negative); Urine Ketone Negative (Negative); Urine Leukocyte Trace (Negative); Urine Nitrite Negative (Negative); Urine Occult Blood Negative (Negative); Urine Specific Gravity 1.005 (<1.030); Urine Urobilinogen Negative (Neg - 1+)
[2023-10-21] MEDS: TORADOL 15 MG IV (15:49)
[2023-10-21 15:54] LABS: Urine Squamous Cell 0-2 /LPF (Few)
[2023-10-21 15:55] LABS: Urine Red Blood Cell 0-2 /HPF (0-2)
[2023-10-21] MEDS: MORPHINE SULFATE 4 MG IV (18:49)
[2023-10-21] MEDS: ZOFRAN 4 MG IV (18:49)
--- NOTE | 2023-10-21 19:10 | HPS.HSE ---
Family Physician
-
Family Physician: NOT KNOW UNKNOWN - PT DOES
Chief Complaint
-
abdominal pain and diarrhea
History of Present Illness
Ms. Priscilla Little is a 58 yo woman with hx abdominoplasty 8 years ago, recent admission 09/17-09/20/23 for acute diverticulitis followed by C. Diff infection (completed oral Vanc 3 days ago) presents to the ER with return of abdominal pain and
diarrhea.
Patient states that she completed her antibiotic course from last admission (Cefdinir/Flagyl) then had significant diarrhea, was diagnosed with C. Diff and completed a 10 day course of oral Vancomycin. She states the diarrhea never completely
resolved but over past several days significantly worse. She reports having diarrhea at least 15 times today. Lower abdominal pain returned as well, she has now felt relief with morphine. She has skin irritation from going so much and worried
about hemorrhoids.
No nausea/vomiting. No measured fevers at home. No headache. No chest pain, no shortness of breath, no LE swelling, no rash.
Medical History
Past Medical History
Past Medical History: Reports Other
Additional Past Medical History:
Diverticulitis
Past Surgical History: Reports Other
Additional Past Surgical History:
Abdominoplasty
Social History
Tobacco: Non-smoker
Alcohol: Occasional
Drug: None
Employment: Employed
Family History
Family History: Not pertinent
Allergies / Home Medications
Allergies reflects when Allergies were last updated in [employer].
Home Medications with original date entered in [employer]
Allergy/Medication List:
Allergies
Allergy/AdvReac Type Severity Reaction Status Date / Time
No Known Allergies Allergy Unverified 10/21/23 12:39
Home Medications
cholecalciferol (vitamin D3) 25 mcg (1,000 unit) tablet 25 mcg PO DAILY Supplement ##0 09/18/23
therapeutic multivitamin 1 tab PO DAILY Supplement 09/18/23
Review of Systems
-
History Source: Patient
A 12 point ROS was completed and negative except as noted: Yes
Physical Exam
Vital Signs
Vital Signs
Temp Pulse Resp BP Pulse Ox
99.1 F 86 18 114/102 97
10/21/23 12:38 10/21/23 14:22 10/21/23 14:22 10/21/23 13:38 10/21/23 14:22
Physical Exam
General: No Apparent Distress and Conversant
HEENT: PERRLA
Respiratory: Clear; No Wheezes
Cardiac: S1/S2 and Regular Rhythm
GI: Other (tenderness left lower quadrant, no rebound or guarding )
Musculoskeletal: No Edema
Skin: Warm and Dry; No Rash
Neuro: AO x 3
Psych: Calm
Laboratory Results
-
10/21/23 13:29
10/21/23 13:29
Laboratory Results
Total Bilirubin 1.3 mg/dl (0.2-1.3) 10/21/23 13:29
AST 31 U/L (14-36) 10/21/23 13:29
ALT 23 U/L (0-35) 10/21/23 13:29
Alkaline Phosphatase 85 U/L (38-126) 10/21/23 13:29
Lipase 130 U/L (23-300) 10/21/23 13:29
Data Reviewed
-
Diagnostic Radiology: Report Reviewed by me
Lab Data: Labs Reviewed by me
Impression/Plan
-
Ms. Priscilla Little is a 58 yo woman with hx abdominoplasty 8 years ago, recent admission 09/17-09/20/23 for acute diverticulitis followed by C. Diff infection (completed oral Vanc 3 days ago) presents to the ER with return of abdominal pain and
diarrhea found to have new area mild acute diverticulitis and recurrent C. Diff.
Triage VS: T 99.1, P 84, RR 18, BP 167/108, SpO2 95%
LABS: WBC 15.3, Hg 13.4, PLT 359, Na 136, K+ 4.1, Cl 102, CO2 28, Cr 0.7, Glucose 103, liver enzymes WNL
CT A/P
IMPRESSION:
Previous sigmoid diverticulitis has improved, with minimal residual soft tissue stranding/inflammation.
Minor acute diverticulitis is suggested involving the distal descending colon. No evidence perforation or abscess.
No bowel obstruction. No obstructive uropathy.
Recurrent C. Diff
-admit to med/surg
-IVF
-Clear liquid diet
-Fidaxomicin
-ID consult
Recurrent Acute Diverticulitis
-continue IV Unasyn started in ER
-clears and IVF as above
-patient follows with Dr. Garcia as outpatient, planning for future colonoscopy. will need close follow up at [place], inpatient consult if clinical worsening
-pain control with Toradol PRN moderate pain; Dilaudid PRN severe pain
DVT PPx lovenox subQ
FULL CODE
[2023-10-21] MEDS: DIFICID 200 MG PO (19:26)
[2023-10-21] MEDS: UNASYN IV (19:27)
[2023-10-21 20:28] LABS: Magnesium 1.8 mg/dl (1.6-2.3)
[2023-10-21] MEDS: LR 1000 IV (21:08)
[2023-10-21] MEDS: DILAUDID 0.5 MG IV (23:01)
[2023-10-22 00:26] VITALS: BP 115/61
[2023-10-22] MEDS: DILAUDID 0.5 MG IV ×2 (00:34→12:13)
[2023-10-22] MEDS: TYLENOL 650 MG PO ×2 (00:34→18:41)
[2023-10-22] MEDS: UNASYN IV ×3 (01:16→15:34)
--- NOTE | 2023-10-22 02:47 | PTCARENOTE ---
Patient AAOx3 arrived on unit via stretcher from ED @2039. Patient denies pain upon arrival, c/o loose stools. Patient's skin assessment completed, oriented to unit, call orozco within reach.
[2023-10-22 07:00] VITALS: BP 99/59
[2023-10-22 07:38] LABS: % Basophils 0.4 % (0-2); % Eosinophils 0.1 % (0-6); % Immature Granulocytes 1.5 % (0-0.5); % Monocytes 11.5 % (1.7-9.3); % Neutrophils 79.5 % (42.2-75.2); Absolute Basophils 0.1 10^3/uL (0-0.2); Absolute Immature Granulocytes 0.3 10^3/uL (0-0.05); Absolute Lymphocytes 1.3 10^3/uL (1.2-3.4); Absolute Neutrophils 14.1 10^3/uL (1.4-6.5); Hematocrit 36.5 % (37.0-47.0); Hemoglobin 11.8 g/dL (12.0-16.0); Mean Corp Hgb Conc. 32.3 g/dL (33.0-37.0); Mean Corpuscular Hgb 24.5 pg (27.0-31.0); Mean Corpuscular Volume 75.9 fL (81.0-99.0); Mean Platelet Volume 8.4 fL (7.4-10.4); Nucleated Red Blood Cells % 0 %; Platelet Count 275 10^3/uL (130-400); Red Blood Cell Count 4.81 10^6/uL (4.20-5.40); White Blood Cell Count 17.7 10^3/uL (4.8-10.8)
[2023-10-22] MEDS: LR 1000 IV ×2 (08:16→16:16)
[2023-10-22] MEDS: DIFICID 200 MG PO ×2 (08:16→19:52)
--- NOTE | 2023-10-22 08:16 | CON.CRS ---
Consultation
-
Date/Time Consultation Performed: 10/22/2023, 8:30
Performing Provider: Jemal Garcia MD
Reason for Consultation: colitis/diverticilutis
Medical History
-
Chief Complaint: abdominal pain and diarrhea
History of Present Illness:
58yo female, recently hospitalized from 09/18/2023 to 09/20/2023 due to sigmoid diverticulitis followed by a C. difficile infection, with 4-5 episodes over the last 10 years, presents to the ER due to abdominal pain and diarrhea. The patient
completed her antibiotic course which was cefdinir and Flagyl but had a lot of diarrhea. She was diagnosed with C. difficile and finished a 10-day course of oral vancomycin. She states that after finishing the vancomycin she felt better and was
eating normally. However she continued to have loose stool. Yesterday morning she stated her abdominal pain was extreme and radiates to her back and down her legs and her diarrhea became worse. She describes having about 15 episodes or more
yesterday. This morning she vomited.
Her last colonoscopy was in March 2022 which showed 2 descending tubular adenomas, diverticulosis, repeat recommended in 5 years. These reports from [facility] were reviewed by Dr. Garcia in a prior office appointment. On arrival to the ER her
WBC is 15.3. Today it is 17.7. She spiked a temp earlier this morning of 100.5. She was normotensive until this morning at 99/59. CT of the abdomen and pelvis shows previous diverticulitis is improved with minimal soft tissue stranding and
inflammation. Minor diverticulitis is suggested in the distal descending colon with no perforation or abscess. There is no bowel obstruction. Her c.diff culture was positive. She was started on Dificid and Unasyn.
Currently she states she was better than she was but she has been receiving IV pain medication. She states she has pain all over her abdomen still and feels a little distended.
Past Medical History
Past Medical History: Other (diverticulitis - hospitalized 09/18/2023 to 09/20/2023)
Past Surgical History: Other (Abdominoplasty)
Social History
Tobacco: Non-Smoker
Alcohol: Occasional
Drug: None
Family History
Family History: Reviewed & Not Pertinent
Allergies / Home Medications
Allergy/AdvReac Type Severity Reaction Status Date / Time
No Known Allergies Allergy Unverified 10/21/23 12:39
�Medication �Instructions �Recorded �Confirmed �Type
cholecalciferol (vitamin D3) 25 25 mcg PO DAILY Supplement ##0 09/18/23 10/21/23 History
mcg (1,000 unit) tablet
therapeutic multivitamin 1 tab PO DAILY Supplement 09/18/23 10/21/23 History
Review of Systems
-
History Source: Patient
Abdomen/GI: Abdominal Pain, Vomiting and Diarrhea
Musculoskeletal: Other (back pain, leg pain b/l)
A 10 point review of systems was completed, and was negative except as per HPI.
Physical Exam
Vital Signs
Temp 99.0 F 10/22/23 07:00
Pulse 99 10/22/23 07:00
Resp Rate 16 10/22/23 07:00
Blood pressure 99/59 10/22/23 07:00
SaO2 94 10/22/23 07:00
10/21/23 10/22/23 10/23/23
06:59 06:59 06:59
Actual Weight 71.242 kg
Body Mass Index (BMI) 27.8
Lab Results / Allergies
10/22/23 07:18
WBC 17.7 10^3/uL (4.8-10.8) H 10/22/23 07:18
Hgb 11.8 g/dL (12.0-16.0) L 10/22/23 07:18
Hct 36.5 % (37.0-47.0) L 10/22/23 07:18
Plt Count 275 10^3/uL (130-400) D 10/22/23 07:18
Abs Immat Gran (auto) 0.3 10^3/uL (0-0.05) H 10/22/23 07:18
Neutrophils % 79.5 % (42.2-75.2) H 10/22/23 07:18
Allergy/AdvReac Type Severity Reaction Status Date / Time
No Known Allergies Allergy Unverified 10/21/23 12:39
Physical Exam
General: Well Developed and Well Nourished
GI: Soft, Tender (diffuse, moderate) and Distended (mild)
Neuro: AO x 3
Data Reviewed
-
CT Scan: Image Personally Visualized and interpreted, Report Reviewed by me and Discussed with Patient
Labs: Labs Reviewed by me, Discussed with Physician and Discussed with Patient
Old Records: Reviewed
Assessment / Plan
-
Assessment: 58-year-old female with a past medical history of prior attacks of diverticulitis and the most recent one being about a month ago with subsequent C. difficile infection, presents wit h abdominal pain and diarrhea and was found to have
descending colon diverticulitis as well as positive C. difficile
Plan:
1. No plans for surgery at this time. If she worsens she may require a colectomy.
2. Continue on clear liquid diet for now.
3. Continue IV fluids.
4. ID consult.
5. Trend labs and vital signs.
6. Okay for DVT prophylaxis tomorrow perspective.
7. Will follow.
[2023-10-22] MEDS: ZOFRAN 4 MG IV ×2 (08:17→22:28)
[2023-10-22] MEDS: TORADOL 15 MG IV ×3 (08:17→22:31)
[2023-10-22 08:44] LABS: Blood Urea Nitrogen 10 mg/dl (7-17); Calcium 8.7 mg/dl (8.4-10.2); Carbon Dioxide 21 mmol/L (22-30); Chloride 102 mmol/L (98-107); Estimated Creatinine Clearance 72 ml/min; Glucose 140 mg/dl (70-99); Magnesium 1.2 mg/dl (1.6-2.3); Potassium 3.6 mmol/L (3.5-5.1); Sodium 132 mmol/L (135-145); eGFR > 60.00
--- NOTE | 2023-10-22 11:29 | W.PN.HOSP.TC ---
Addendum entered and electronically signed by Rich Casey MD 10/22/23 12:01:
Patient BP soft, repeat check of 90/50
ordering 1 L bolus, Of note already had 2 L in ER. finish 30ml/kg goal for IVF
if BP not improved after that will need to be moved to IMU for pressor support
Original Note:
Today's Communication/Plan
-
see note
Assessment / Plan
Assessment / Plan
CT a/p
Previous sigmoid diverticulitis has improved, with minimal residual soft tissue stranding/inflammation.
Minor acute diverticulitis is suggested involving the distal descending colon. No evidence perforation or abscess.
No bowel obstruction. No obstructive uropathy.

1. Severe Cdiff colitis relapse
-Patient initially diagnosed for C. difficile colitis earlier in August after antibiotic exposure for treatment of diverticulitis
-Patient was on long taper of oral vancomycin and finished course last Thursday
-day before visit patient started noticing worsening lower abd discomfort and excessive diarrhea.
-WBC 17.5k, cr 0.8. No ileus. Hypotension with SBP 100s in morning.
-Stool test in ER positive for toxin producing C. difficile.
-Patient on fidaxomicin.
-Maintain on NS IVF
-Monitor for any sign of ileus/megacolon, may require colectomy if not improved with medical management.
2. Acute diverticulitis
-Need to be ruled out
-on unasyn empirically based on CT a/p findings. Discussed with ID for need of continuation vs stopping
3. Hypomagnesemia
-replace with 2g mag
4. Hyponatremia
-Presumed hypovolemic with ongoing severe luminal fluid loss
5. Microcytic anemia
-Presuming chronic component of iron deficiency. Check panels in the morning
-some dilutional component with no signs of active blood loss, monitor.
DVT PPX - lovenox
Full code
Discussed with ID.
High risk condition
Total time spent : 53 mins
I personally saw and examined the patient.
I have reviewed all diagnostic interpretations and treatment plans as written.
Time includes patient management by me, time spent at the patients bedside, time to review lab and imaging results, discussing patient care, documentation in the medical record, and time spent with the family or caregiver and discussing care plan
with RN/Consultants.
Anticipated Discharge: > 48 hours
Subjective/Interval History
-
Date of Service: October 22, 2023
Continues to have significant diarrhea overnight
have ongoing lower abd pain/nausea
afebrile
Objective Data
-
Labs:
Laboratory Results
10/22/23
07:18
WBC 17.7 H
Hgb 11.8 L
Hct 36.5 L
Plt Count 275 D
Sodium 132 L
Potassium 3.6
Chloride 102
Carbon Dioxide 21 L
BUN 10
Creatinine 0.8
Glucose 140 H
Calcium 8.7
Vital Signs:
Vital Signs
Temp Pulse Resp BP Pulse Ox
99.0 F 99 16 99/59 94
10/22/23 07:00 10/22/23 07:00 10/22/23 07:00 10/22/23 07:00 10/22/23 07:00
I&O
10/21/23 10/22/23 10/23/23
06:59 06:59 06:59
Intake Total 1443 / 1443
Balance 1443 / 1443
Review of Systems
-
Respiratory: Reports No Symptoms
Cardiac: Reports No Symptoms
Abdomen/GI: Reports Abdominal Pain, Nausea and Diarrhea
Physical Exam
-
General: Appears in Distress
HEENT: Negative Oxygen
GI: Soft, Normal Bowel Sounds and Tender; Negative Distended
Musculoskeletal: No Edema
Neuro: Awake, Alert and Oriented
Psych: Calm
[2023-10-22 11:30] VITALS: BP 91/51
[2023-10-22] MEDS: Pyridium 200 MG PO ×3 (12:13→23:27)
[2023-10-22] MEDS: NSS 1000 IV (12:13)
[2023-10-22] MEDS: MAGNESIUM SULFATE 50 IV (12:13)
[2023-10-22 15:00] VITALS: BP 106/56
--- NOTE | 2023-10-22 15:45 | CON.ID ---
Consultation
-
Date/Time Consultation Requested: 10/21/23 20:39
Date/Time Consultation Performed: 10/21/23 15:51
Requesting Provider: Dr Rodriguez
Performing Provider: Dr Villarreal
Reason for Consultation: recurrent C diff, possible diverticulitis
Chief Complaint / Past History
Chief Complaint
abd pain and diarrhea
History of Present Illness
Ms Little is a 58 year old female with remote history of abdominoplasty, admitted here 09/17 for acute diverticulitis treated with cefdinir/metronidazole subsequently diagnosed with C difficle s/p 10 day of oral vancomycin 3 days after completion
of therapy with relapse of lower abdominal pain, relapse of diarrhea (15x on day of arrival). No fevers, nausea or vomiting
Since arrival here Tmax last night 100.5 orally, bp stable until this afternoon now soft, wbc on arrival 15 now 17, hgb 11.8, plt 275, L shift slightly improved, cr 0.8, CT a/p Previous sigmoid diverticulitis has improved, with minimal residual soft
tissue stranding/inflammation. Minor acute diverticulitis is suggested involving the distal descending colon. No evidence perforation or abscess. C diff toxin positive, currently on unasyn and fidaxomicin. ID is consulted for assistance with
management.
Past History
Additional Past Medical History:
diverticulitis
Additional Past Surgical History:
as per hpi
Allergy History:
No Known Allergies Allergy (Unverified 10/21/23 12:39)
Medications Reviewed: Yes
Social History
Tobacco: Non-Smoker
Alcohol: Occasional
Drug: None
Family History
Family History: Not Pertinent
Review of Systems
Review of Systems
General: Fever; Negative Chills
All systems: All other systems were reviewed and were negative
Vital Signs
Temp Pulse Resp BP Pulse Ox
99.0 F 99 16 91/51 94
10/22/23 07:00 10/22/23 07:00 10/22/23 07:00 10/22/23 11:30 10/22/23 07:00
Physical Exam
Physical Exam
Constitutional: No Acute Distress
Cardiovascular: Regular Rate and S1/S2; Negative Murmur or Rub
Pulmonary: Clear and Symmetric; Negative Wheezes, Rales or Rhonchi
Gastrointestinal: Soft, Tender (mild - improved per patient), Non Distended and Normal Bowel Sounds
Skin: Warm and Dry; Negative Rash or Jaundice
Neurological: Awake
Lab / Diagnostic Study Results
10/22/23 07:18
10/22/23 07:18
Abs Immat Gran (auto) 0.3 10^3/uL (0-0.05) H 10/22/23 07:18
Absolute Neuts (auto) 14.1 10^3/uL (1.4-6.5) H 10/22/23 07:18
Absolute Lymphs (auto) 1.3 10^3/uL (1.2-3.4) 10/22/23 07:18
Absolute Monos (auto) 2.0 10^3/uL (0.1-0.6) H 10/22/23 07:18
Absolute Basos (auto) 0.1 10^3/uL (0-0.2) 10/22/23 07:18
Immature Gran % 1.5 % (0-0.5) H 10/22/23 07:18
Neutrophils % 79.5 % (42.2-75.2) H 10/22/23 07:18
Lymphocytes % 7.0 % (20.5-51.1) L 10/22/23 07:18
Monocytes % 11.5 % (1.7-9.3) H 10/22/23 07:18
Eosinophils % 0.1 % (0-6) 10/22/23 07:18
Basophils % 0.4 % (0-2) 10/22/23 07:18
Ur Squamous Epith Cells 0-2 /LPF (Few) 10/21/23 15:10
Microbiology Results
Micro:
10/21/23 15:10 Salmonella/Shigella Culture - Preliminary
Feces/Stool Culture in Progress
Campylobacter Culture - Preliminary
Culture in Progress
Shiga Toxin Test - Final
No E. coli Shiga Toxin 1 or 2 detected.
10/21/23 15:10 C. difficile GDH Antigen & Toxins - Final
Feces/Stool Toxigenic C.difficile Positive
Assessment / Plan
Recurrent C difficile x2
- first episode early september 2023
- second episode also C diff ag/toxin positive 10/20
- currently on fidaxomicin - senior case manager will check cost with her pharmacy
- add IV metronidazole; switch unasyn to ceftriaxone
- probiotics
- avoid PPI if possible (not currently on one)
- recommend regular diet when able to take a diet, if surgery feels NPO status best at this time then would defer to their service
- my office is attempting to arrange vowst - outpatient oral fecal transplant which would start after completion of current treatment
- follow clinically - cautiously optimist that shes improving
Care Review
Plan reviewed with: Physician (Dr Casey, Dr Garcia - chiquita)
[2023-10-22] MEDS: VISBIOME 2 CAP PO (16:14)
--- NOTE | 2023-10-22 16:31 | CM ---
Spoke with ID who asked that Fidaxomincin 200 mg PO BID x8 days be checked for oakley. Called [facility] and spoke with a CM named, Tahir who stated that the cost would be $50.01. This information was conveyed to ID.
[2023-10-22] MEDS: DIFICID PO (19:43)
[2023-10-22] MEDS: ROCEPHIN 2000 MG IV (22:28)
[2023-10-22] MEDS: STERILE WATER FOR INJECTION 20 ML IV (22:28)
[2023-10-22] MEDS: FLAGYL 500 MG 100 IV (22:28)
[2023-10-22] MEDS: FLUSH (NSS) 1 FLUSH IV ×2 (22:30)
[2023-10-22 22:40] VITALS: BP 101/55
[2023-10-23 02:00] VITALS: BP 107/87
[2023-10-23 02:16] VITALS: BP 107/87
[2023-10-23] MEDS: LR 1000 IV ×3 (02:27→16:48)
[2023-10-23] MEDS: COMPAZINE 5 MG IV (02:35)
[2023-10-23] MEDS: FLAGYL 500 MG 100 IV ×3 (05:05→23:17)
[2023-10-23 06:42] LABS: Hematocrit 31.7 % (37.0-47.0); Hemoglobin 10.4 g/dL (12.0-16.0); Mean Corp Hgb Conc. 32.8 g/dL (33.0-37.0); Mean Corpuscular Hgb 24.1 pg (27.0-31.0); Mean Corpuscular Volume 73.5 fL (81.0-99.0); Mean Platelet Volume 8.7 fL (7.4-10.4); Platelet Count 255 10^3/uL (130-400); Red Blood Cell Count 4.31 10^6/uL (4.20-5.40); Red Cell Dist. Width 16.9 % (11.5-14.5)
[2023-10-23 07:00] VITALS: BP 99/51
[2023-10-23 07:17] LABS: ALT (SGPT) 16 U/L (0-35); AST (SGOT) 20 U/L (14-36); Albumin 2.6 g/dl (3.5-5.0); Alkaline Phosphatase 77 U/L (38-126); Blood Urea Nitrogen 16 mg/dl (7-17); Calcium 8.4 mg/dl (8.4-10.2); Carbon Dioxide 22 mmol/L (22-30); Chloride 103 mmol/L (98-107); Estimated Creatinine Clearance 64 ml/min; Glucose 125 mg/dl (70-99); Iron 26 ug/dl (37-170); Potassium 3.4 mmol/L (3.5-5.1); Sodium 132 mmol/L (135-145); Total Bilirubin 1.7 mg/dl (0.2-1.3); Total Protein 4.8 g/dl (6.3-8.2); eGFR > 60.00
[2023-10-23 07:22] LABS: Percent Saturation 9 % (20-50); Total Iron Binding Capacity 268 ug/dl (265-497)
--- NOTE | 2023-10-23 07:41 | PTCARENOTE ---
Patient c/o chills and observed shaking @0200. Vitals are BP107/87 HR 98 temp 98.6 98% RA. PT complaining of nausea, had received prn zofran 2228. S[facility] FINISHER made aware, new order received for compazine.
[2023-10-23] MEDS: Pyridium 200 MG PO ×3 (08:44→23:14)
[2023-10-23] MEDS: DIFICID 200 MG PO ×2 (08:44→20:28)
[2023-10-23] MEDS: VISBIOME 2 CAP PO (08:44)
[2023-10-23 08:45] VITALS: BMI 29.2
[2023-10-23] MEDS: TORADOL 15 MG IV ×2 (09:34→18:21)
--- NOTE | 2023-10-23 10:11 | W.PN.CRS1 ---
Today's Communication / Plan
-
advance diet if tolerates
antibiotics per ID
no plans for surgery at this time
Assessment/Plan
-
Assessment: 58-year-old female with a past medical history of prior attacks of diverticulitis and the most recent one being about a month ago with subsequent C. difficile infection, presents wit h abdominal pain and diarrhea and was found to have
descending colon diverticulitis as well as positive C. difficile
Plan:
1. No plans for surgery at this time. If she worsens she may require a colectomy.
2. Continue on clear liquid diet for now. She may have a regular diet later today if she is hungry and can tolerate.
3. Continue IV fluids.
4. Appreciate ID consult. Currently on fidaxomicin, antibiotics switched to metronidazole and ceftriaxone.
5. Trend labs and vital signs. Tmax 101.7 overnight. WBC remains basically unchanged at 17.0.
6. Okay for DVT prophylaxis tomorrow perspective.
7. Will follow.
Subjective Data
Subjective Data
Date of Service: October 23, 2023
Patient states she still has diarrhea. Her pain is 'not bad' and it is better than yesterday. She is not that hungry.
Objective Data
-
Vital Signs
Temp Pulse Resp BP Pulse Ox
98.6 F 87 16 99/51 94
10/23/23 07:00 10/23/23 07:00 10/23/23 07:00 10/23/23 07:00 10/23/23 07:00
Intake & Output
10/22/23 10/23/23 10/24/23
06:59 06:59 06:59
Intake Total 1443 / 1443 2850 / 2850
Balance 1443 / 1443 2850 / 2850
Intake:
Oral fluids 1200 / 1200
IV fluids (Total) 1200 / 1200 1400 / 1400
IV piggybacks 240 / 240 250 / 250
Blood products 3 / 3
Other:
Number of approximated SMALL 3
amounts of urine
Number of approximated MODERATE 3
amounts of urine
Number of unmeasured liquid
stools
Rectum 3
Lab Results
10/23/23 06:18
10/23/23 06:18
Physical Exam
-
General: No Acute Distress and AOx3
Abdomen: Soft, Non Distended and Tender (lower quadrants, mild, improving)
Skin: Warm and Dry
--- NOTE | 2023-10-23 10:27 | W.PN.HOSP.TC ---
Today's Communication/Plan
-
Continue fidaxomicin
Maintain on IV fluid
Diet as tolerated
Iron replacement
Assessment / Plan
Assessment / Plan
CT a/p
Previous sigmoid diverticulitis has improved, with minimal residual soft tissue stranding/inflammation.
Minor acute diverticulitis is suggested involving the distal descending colon. No evidence perforation or abscess.
No bowel obstruction. No obstructive uropathy.

1. Severe Cdiff colitis relapse
-Patient initially diagnosed for C. difficile colitis earlier in August after antibiotic exposure for treatment of diverticulitis
-Patient was on long taper of oral vancomycin and finished course last Thursday
-day before visit patient started noticing worsening lower abd discomfort and excessive diarrhea.
-WBC 17k, cr 0.8. No ileus.
-Stool test in ER positive for toxin producing C. difficile.
-Patient on fidaxomicin. ID following and help appreciated
-CRS evaluated and no indication for colectomy at this point.
-Maintain on NS IVF
2. Acute diverticulitis
-Changed to Rocephin based on ID recommendation.
3. Hypomagnesemia
-replace with 2g mag
4. Hyponatremia
-Presumed hypovolemic with ongoing severe luminal fluid loss
5. Iron def anemia
- Ferritin < 100 and SI < 20 in acute phase, diagnostic of ROLAND
- Replace with Ferlicit x 5 doses
- C-scope 1 yr back showed 2 benign polyps only.
DVT PPX - lovenox
Full code
Anticipated Discharge: > 48 hours
Subjective/Interval History
-
Date of Service: October 23, 2023
Still has some ongoing abdominal pain
Still have diarrhea although volume has decreased per patient
afebrile in night
some nausea and no vomiting
Objective Data
-
Labs:
Laboratory Results
10/23/23
06:18
WBC 17.0 H
Hgb 10.4 L
Hct 31.7 L
Plt Count 255
Sodium 132 L
Potassium 3.4 L
Chloride 103
Carbon Dioxide 22
BUN 16
Creatinine 0.9
Glucose 125 H
Calcium 8.4
Total Bilirubin 1.7 H
AST 20
ALT 16
Alkaline Phosphatase 77
Vital Signs:
Vital Signs
Temp Pulse Resp BP Pulse Ox
98.6 F 87 16 99/51 94
10/23/23 07:00 10/23/23 07:00 10/23/23 07:00 10/23/23 07:00 10/23/23 07:00
I&O
10/22/23 10/23/23 10/24/23
06:59 06:59 06:59
Intake Total 1443 / 1443 2850 / 2850
Balance 1443 / 1443 2850 / 2850
Review of Systems
-
Respiratory: Reports No Symptoms
Cardiac: Reports No Symptoms
Abdomen/GI: Reports Abdominal Pain, Nausea and Diarrhea; Denies Vomiting
Physical Exam
-
General: Appears in Distress
HEENT: Negative Oxygen
GI: Soft, Normal Bowel Sounds and Tender; Negative Distended
Musculoskeletal: No Edema
Neuro: Awake, Alert and Oriented
Psych: Calm
[2023-10-23] MEDS: LR IV (12:39)
[2023-10-23] MEDS: ZOFRAN 4 MG IV ×2 (14:13→23:22)
[2023-10-23] MEDS: DILAUDID 0.5 MG IV ×2 (14:13→23:17)
--- NOTE | 2023-10-23 14:43 | W.PN.ID1 ---
Date of Service
Date of Service: October 23, 2023
Today's Communication
continue current plan
Assessment / Plan
Recurrent C difficile x2
- first episode early september 2023
- second episode also C diff ag/toxin positive 10/20
- currently on fidaxomicin - cost acceptable
- continue IV metronidazole
- continue ceftriaxone for today - possible stop tomorrow
- probiotics
- avoid PPI if possible (not currently on one)
- recommend regular diet when able to take a diet, if surgery feels NPO status best at this time then would defer to their service
- my office is attempting to arrange vowst - outpatient oral fecal transplant which would start after completion of current treatment
- follow clinically - cautiously optimist that shes improving
Chief Complaint
-: Fever
Subjective / Review of Systems
fevers ongoing
bp soft
persistent leukocytosis
further decline in hgb
plt stable
cr 0.9
AXR: moderate gas - ileus vs partial SBO
BMs now loose
Vital Signs / Physical Exam
Vital Signs
Vital Signs
Temp Pulse Resp BP Pulse Ox
98.6 F 87 16 99/51 94
10/23/23 07:00 10/23/23 07:00 10/23/23 07:00 10/23/23 07:00 10/23/23 07:00
Physical Exam
Constitutional: No Acute Distress
Cardiovascular: Regular Rate and S1/S2; Negative Murmur or Rub
Pulmonary: Clear and Symmetric; Negative Wheezes or Rales
Gastrointestinal: Soft, Tender, Non Distended and Normal Bowel Sounds
Skin: Warm and Dry; Negative Rash or Jaundice
Objective Data
Lab Data
Lab Results
10/23/23 06:18
10/23/23 06:18
Estimated Creat Clear 64 ml/min 10/23/23 06:18
Total Bilirubin 1.7 mg/dl (0.2-1.3) H 10/23/23 06:18
AST 20 U/L (14-36) 10/23/23 06:18
ALT 16 U/L (0-35) 10/23/23 06:18
Alkaline Phosphatase 77 U/L (38-126) 10/23/23 06:18
Most recent labs reviewed.
Micro Results:
10/21/23 15:10 Salmonella/Shigella Culture - Preliminary
Feces/Stool Culture in Progress
Campylobacter Culture - Final
No Campylobacter species isolated.
Shiga Toxin Test - Final
No E. coli Shiga Toxin 1 or 2 detected.
10/21/23 15:10 C. difficile GDH Antigen & Toxins - Final
Feces/Stool Toxigenic C.difficile Positive
Care Review
Plan reviewed with: Physician (dr mena - antolin)
[2023-10-23 14:58] VITALS: BP 94/53
--- NOTE | 2023-10-23 15:14 | PN.CDI ---
CDI
- -
CDI:
Physician Documentation Request
Admit Date: 10/21/23 20:16
Dear Doctor Jacinto,
Please review the following and provide your response in the progress notes.
Clinical Indicators:
H+P, 10/20
#Triage VS: T 99.1, P 84, RR 18, BP 167/108, SpO2 95%
#Recurrent C. Diff
#Recurrent Acute Diverticulitis
PN, 10/21
#Patient BP soft, repeat check of 90/50
#...ordering 1 L bolus, Of note already had 2 L in ER. finish 30ml/kg goal for IVF
#...if BP not improved after that will need to be moved to IMU for pressor support
#Severe Cdiff colitis relapse
#-WBC 17.5k, cr 0.8. No ileus. Hypotension with SBP 100s in morning.
Laboratory Tests
10/21/23 10/22/23 10/23/23
13:29 07:18 06:18
WBC 15.3 H 17.7 H 17.0 H
Laboratory Tests
10/21/23 10/23/23
13:29 06:18
Total Bilirubin 1.3 1.7 H
Selected Entries
10/22/23
00:26 10/22/23
15:00
Temp 100.5 F H 101.7 F H
Pulse 94 94
Based on the above and your clinical assessment, please clarify which of the following most accurately describes the status of the patient's infection:
Sepsis, POA
Sepsis likely, probable, suspected
Localized Infection Only, Without Systemic Illness
- indicate the site/source, such as UTI, pneumonia etc.
Other
Sepsis
- Systemic manifestations of infection, with 2 or more SIRS criteria which include:
- Fever >100.4 degrees F or hypothermia < 96.8 degrees F
- Leukocytosis - WBC > 12,000 or leukopenia - WBC < 4,000 or > 10% bands
- Tachycardia > 90 beats per minute
- Tachypnea - RR > 20 breaths per minute or PaCO2 , 32mmHg
Source: Merck Manual 2013
- Indicate the known or suspected underlying infection, such as UTI, pneumonia or cellulitis
Use of terms such as suspected, likely, concern for, or probable (associated with a specific diagnosis that is being evaluated, monitored, or treated as if it exists) are acceptable and can be coded in the inpatient setting, when documented at the
time of discharge.
Thank you,
Natali Groves RN BSN CCDS
CDI Specialist
please contact via tiger text
Please use your independent medical judgment in providing your response.
[2023-10-23] MEDS: FERRLECIT 110 MG IV (16:48)
--- NOTE | 2023-10-23 18:04 | CM ---
met with liu at bedside.she lives aone in house with 10 steps to enter,her bed and bath is on the second level,she amb i and is i with her adl's.herpcp is dr charity crocker and she uses [facility] in [place].she has never had a vn or ip
rehab episode.
patient is adm with cdiff colitis relapse.she is on iv rocephin,iv iron,deficid.she will have no needs when discharged home- she has family support.plan dc home with no needs.
[2023-10-23] MEDS: FLUSH (NSS) 10 FLUSH IV (22:05)
[2023-10-23] MEDS: ROCEPHIN 2000 MG IV (23:18)
[2023-10-23] MEDS: STERILE WATER FOR INJECTION 20 ML IV (23:18)
[2023-10-23] MEDS: FLUSH (NSS) 1 FLUSH IV ×2 (23:18→23:19)
[2023-10-23 23:35] VITALS: BP 104/68
[2023-10-24] MEDS: LR 1000 IV ×2 (01:29→07:47)
[2023-10-24] MEDS: FLAGYL 500 MG 100 IV ×3 (06:05→22:28)
[2023-10-24 07:00] VITALS: BP 130/72
[2023-10-24] MEDS: VISBIOME 2 CAP PO (07:46)
[2023-10-24] MEDS: Pyridium 200 MG PO (07:46)
[2023-10-24] MEDS: DIFICID 200 MG PO ×2 (07:46→22:27)
[2023-10-24] MEDS: DILAUDID 0.5 MG IV ×3 (08:44→20:51)
[2023-10-24] MEDS: ZOFRAN 4 MG IV ×2 (08:45→15:57)
[2023-10-24 09:14] LABS: ALT (SGPT) 13 U/L (0-35); AST (SGOT) 19 U/L (14-36); Albumin 2.4 g/dl (3.5-5.0); Alkaline Phosphatase 82 U/L (38-126); Blood Urea Nitrogen 13 mg/dl (7-17); Calcium 8.2 mg/dl (8.4-10.2); Carbon Dioxide 23 mmol/L (22-30); Chloride 103 mmol/L (98-107); Estimated Creatinine Clearance 99 ml/min; Glucose 83 mg/dl (70-99); Potassium 3.3 mmol/L (3.5-5.1); Sodium 131 mmol/L (135-145); Total Bilirubin 0.9 mg/dl (0.2-1.3); Total Protein 4.5 g/dl (6.3-8.2); eGFR > 60.00
[2023-10-24 09:15] LABS: Hematocrit 28.5 % (37.0-47.0); Hemoglobin 9.6 g/dL (12.0-16.0); Mean Corp Hgb Conc. 33.7 g/dL (33.0-37.0); Mean Corpuscular Hgb 24.6 pg (27.0-31.0); Mean Corpuscular Volume 72.9 fL (81.0-99.0); Mean Platelet Volume 8.8 fL (7.4-10.4); Platelet Count 256 10^3/uL (130-400); Red Blood Cell Count 3.91 10^6/uL (4.20-5.40); Red Cell Dist. Width 16.8 % (11.5-14.5); White Blood Cell Count 15.5 10^3/uL (4.8-10.8)
[2023-10-24] MEDS: KCL 40 MEQ PO (11:15)
--- NOTE | 2023-10-24 13:20 | W.PN.HOSP.TC ---
Addendum entered and electronically signed by Rich Casey MD 10/24/23 15:34:
Add on to diagnosis list :
Sepsis - POA - improving
Original Note:
Today's Communication/Plan
-
continue fidaxomicin
advance diet as tolerated
Assessment / Plan
Assessment / Plan
CT a/p
Previous sigmoid diverticulitis has improved, with minimal residual soft tissue stranding/inflammation.
Minor acute diverticulitis is suggested involving the distal descending colon. No evidence perforation or abscess.
No bowel obstruction. No obstructive uropathy.

1. Severe Cdiff colitis relapse
-Patient initially diagnosed for C. difficile colitis earlier in August after antibiotic exposure for treatment of diverticulitis
-Patient was on long taper of oral vancomycin and finished course last Thursday
-day before visit patient started noticing worsening lower abd discomfort and excessive diarrhea.
-WBC 17k, cr 0.8. No ileus.
-Stool test in ER positive for toxin producing C. difficile.
-Patient on fidaxomicin. ID following and help appreciated
-CRS evaluated and no indication for colectomy at this point.
-advance diet to [place] diet, can go to regular diet
2. Acute diverticulitis
-Changed to Rocephin based on ID recommendation.
3. Hypomagnesemia
Hypokalemia
-replace as needed
4. Hyponatremia
-Presumed hypovolemic with ongoing severe luminal fluid loss
5. Iron def anemia
- Ferritin < 100 and SI < 20 in acute phase, diagnostic of ROLAND
- Replace with Ferlicit x 5 doses
- C-scope 1 yr back showed 2 benign polyps only.
DVT PPX - lovenox
Full code
Anticipated Discharge: > 48 hours
Subjective/Interval History
-
Date of Service: October 24, 2023
Patient comfortable in bed
Still have some lower abdominal discomfort
Ongoing diarrhea
Objective Data
-
Labs:
Laboratory Results
10/24/23
07:49
WBC 15.5 H
Hgb 9.6 L
Hct 28.5 L
Plt Count 256
Sodium 131 L
Potassium 3.3 L
Chloride 103
Carbon Dioxide 23
BUN 13
Creatinine 0.6
Glucose 83
Calcium 8.2 L
Total Bilirubin 0.9
AST 19
ALT 13
Alkaline Phosphatase 82
Vital Signs:
Vital Signs
Temp Pulse Resp BP Pulse Ox
98.5 F 72 18 130/72 94
10/24/23 07:00 10/24/23 07:00 10/24/23 07:00 10/24/23 07:00 10/24/23 07:00
I&O
10/23/23 10/24/23 10/25/23
06:59 06:59 06:59
Intake Total 2850 / 2850 2220 / 2220
Balance 2850 / 2850 2220 / 2220
Review of Systems
-
Respiratory: Reports No Symptoms
Cardiac: Reports No Symptoms
Abdomen/GI: Reports Abdominal Pain and Diarrhea; Denies Nausea or Vomiting
Physical Exam
-
General: Appears in Distress
HEENT: Negative Oxygen
GI: Soft, Nontender and Normal Bowel Sounds; Negative Distended
Musculoskeletal: No Edema
Neuro: Awake, Alert and Oriented
Psych: Calm
--- NOTE | 2023-10-24 14:20 | W.PN.CRS1 ---
Today's Communication / Plan
-
Fulls.
Continue current measures.
Assessment/Plan
-
C diff.
1. still diarrhea. WBC improving.
2. stable.
3. agree with fulls.
4. will continue to follow.
Subjective Data
Subjective Data
Date of Service: October 24, 2023
Still diarrhea. Minimal discomfort.
Objective Data
-
Vital Signs
Temp Pulse Resp BP Pulse Ox
98.5 F 72 18 130/72 94
10/24/23 07:00 10/24/23 07:00 10/24/23 07:00 10/24/23 07:00 10/24/23 07:00
Intake & Output
10/23/23 10/24/23 10/25/23
06:59 06:59 06:59
Intake Total 2850 / 2850 2220 / 2220
Balance 2850 / 2850 2220 / 2220
Intake:
Oral fluids 1200 / 1200 2019 / 2019
IV fluids (Total) 1400 / 1400
IV piggybacks 250 / 250 200 / 200
Other:
Number of approximated SMALL 2
amounts of urine
Number of approximated MODERATE 3
amounts of urine
Number of unmeasured liquid
stools
Rectum 3
Lab Results
10/24/23 07:49
10/24/23 07:49
Physical Exam
-
General: No Acute Distress
Chest: Clear
Cardiovascular: Regular Rate & Rhythm
Abdomen: Distended (mild) and Tender (mild )
[2023-10-24 15:00] VITALS: BP 137/74
[2023-10-24] MEDS: FERRLECIT 110 MG IV (15:58)
[2023-10-24] MEDS: Pyridium PO (16:03)
[2023-10-24] MEDS: COMPAZINE 5 MG IV (20:48)
[2023-10-24] MEDS: STERILE WATER FOR INJECTION 20 ML IV (22:27)
[2023-10-24] MEDS: ROCEPHIN 2000 MG IV (22:28)
[2023-10-24] MEDS: FLUSH (NSS) 1 FLUSH IV ×3 (22:28→22:29)
[2023-10-24 23:00] VITALS: BP 126/70
[2023-10-25] MEDS: Pyridium 200 MG PO ×2 (00:27→08:35)
[2023-10-25] MEDS: FLAGYL 500 MG 100 IV (05:47)
[2023-10-25 06:00] VITALS: BMI 30.1
[2023-10-25] MEDS: TYLENOL 650 MG PO (06:00)
[2023-10-25 07:00] VITALS: BP 132/70
[2023-10-25 07:31] LABS: Hemoglobin 10.7 g/dL (12.0-16.0); Mean Corp Hgb Conc. 32.4 g/dL (33.0-37.0); Mean Corpuscular Volume 74.2 fL (81.0-99.0); Mean Platelet Volume 8.9 fL (7.4-10.4); Platelet Count 309 10^3/uL (130-400); Red Blood Cell Count 4.45 10^6/uL (4.20-5.40); Red Cell Dist. Width 16.9 % (11.5-14.5); White Blood Cell Count 10.9 10^3/uL (4.8-10.8)
[2023-10-25 08:13] LABS: ALT (SGPT) 14 U/L (0-35); AST (SGOT) 19 U/L (14-36); Albumin 2.9 g/dl (3.5-5.0); Alkaline Phosphatase 94 U/L (38-126); Blood Urea Nitrogen 5 mg/dl (7-17); Calcium 8.8 mg/dl (8.4-10.2); Carbon Dioxide 24 mmol/L (22-30); Chloride 100 mmol/L (98-107); Estimated Creatinine Clearance 99 ml/min; Glucose 87 mg/dl (70-99); Sodium 133 mmol/L (135-145); Total Bilirubin 0.7 mg/dl (0.2-1.3); Total Protein 5.2 g/dl (6.3-8.2); eGFR > 60.00
[2023-10-25] MEDS: DIFICID 200 MG PO (08:35)
--- NOTE | 2023-10-25 08:53 | CM ---
Patient remains independent, functioning at baseline level. Will return home when stable.
Plan: Case management will continue to follow and assist with discharge planning. Home when medically cleared.
[2023-10-25] MEDS: VISBIOME 2 CAP PO (09:42)
[2023-10-25] MEDS: KCL 40 MEQ PO (09:42)
[2023-10-25] MEDS: TORADOL 15 MG IV (09:42)
[2023-10-25] MEDS: ZOFRAN 4 MG IV (09:42)
--- NOTE | 2023-10-25 12:17 | W.PN.HOSP.TC ---
Today's Communication/Plan
-
Continue fidaxomicin
Rocephin/Flagyl per ID
Assessment / Plan
Assessment / Plan
CT a/p
Previous sigmoid diverticulitis has improved, with minimal residual soft tissue stranding/inflammation.
Minor acute diverticulitis is suggested involving the distal descending colon. No evidence perforation or abscess.
No bowel obstruction. No obstructive uropathy.

1. Severe Cdiff colitis relapse
-Patient initially diagnosed for C. difficile colitis earlier in August after antibiotic exposure for treatment of diverticulitis
-Patient was on long taper of oral vancomycin and finished course last Thursday
-day before visit patient started noticing worsening lower abd discomfort and excessive diarrhea.
-Stool test in ER positive for toxin producing C. difficile.
-Patient on fidaxomicin. ID following and help appreciated
-CRS evaluated and no indication for colectomy at this point.
-WBC trending down, pt subjectively feeling better. still have 4-5BM
2. Acute diverticulitis
-Changed to Rocephin/flagyl based on ID recommendation.
3. Hypomagnesemia
Hypokalemia
-replace as needed
4. Hyponatremia
-Presumed hypovolemic with ongoing severe luminal fluid loss
5. Iron def anemia
- Ferritin < 100 and SI < 20 in acute phase, diagnostic of ROLAND
- Replace with Ferlicit x 5 doses
- C-scope 1 yr back showed 2 benign polyps only.
DVT PPX - lovenox
Full code
Anticipated Discharge: > 48 hours
Subjective/Interval History
-
Date of Service: October 25, 2023
some lower abd discomfort/bloating
4-5 BM in night, liquid
Objective Data
-
Labs:
Laboratory Results
10/25/23
06:33
WBC 10.9 H
Hgb 10.7 L
Hct 33.0 L
Plt Count 309 D
Sodium 133 L
Potassium 3.0 L
Chloride 100
Carbon Dioxide 24
BUN 5 L
Creatinine 0.6
Glucose 87
Calcium 8.8
Total Bilirubin 0.7
AST 19
ALT 14
Alkaline Phosphatase 94
Vital Signs:
Vital Signs
Temp Pulse Resp BP Pulse Ox
98.0 F 66 18 132/70 95
10/25/23 07:00 10/25/23 07:00 10/25/23 07:00 10/25/23 07:00 10/25/23 07:00
I&O
10/24/23 10/25/23 10/26/23
06:59 06:59 06:59
Intake Total 2220 / 2220 2140 / 2140 580 / 580
Balance 2220 / 2220 2140 / 2140 580 / 580
Review of Systems
-
Respiratory: Reports No Symptoms
Cardiac: Reports No Symptoms
Abdomen/GI: Reports Abdominal Pain; Denies Nausea or Vomiting
Physical Exam
-
General: Appears in Distress
HEENT: Negative Oxygen
GI: Soft, Nontender and Normal Bowel Sounds; Negative Distended
Musculoskeletal: No Edema
Neuro: Awake, Alert and Oriented
Psych: Calm
--- NOTE | 2023-10-25 12:52 | W.PN.ID1 ---
Date of Service
Date of Service: October 25, 2023
Today's Communication
- currently on fidaxomicin to continue x10 days 10/20-10/29
- stop metro/ceftriaxone
- probiotics
- my office is attempting to arrange vowst - outpatient oral fecal transplant which would start after completion of current treatment
- if approved then
- 3 days after completing fidaxomicin do prep, then 3 days of oral pills, then stop
- stable for dc from ID perspective
Assessment / Plan
Recurrent C difficile x2
- first episode early september 2023
- second episode also C diff ag/toxin positive 10/20
- currently on fidaxomicin to continue x10 days 10/20-10/29
- stop metro/ceftriaxone
- probiotics
- my office is attempting to arrange vowst - outpatient oral fecal transplant which would start after completion of current treatment
- if approved then
- 3 days after completing fidaxomicin do prep, then 3 days of oral pills, then stop
- stable for dc from ID perspective
Chief Complaint
-: C-diff
Subjective / Review of Systems
no further fevers
bp stable
leukocytosis resolving
cr stable
less abdominal tenderness
tolerating current therapies
'i feel a lot better'
Vital Signs / Physical Exam
Vital Signs
Vital Signs
Temp Pulse Resp BP Pulse Ox
98.0 F 66 18 132/70 95
10/25/23 07:00 10/25/23 07:00 10/25/23 07:00 10/25/23 07:00 10/25/23 07:00
Physical Exam
Constitutional: No Acute Distress
Cardiovascular: Regular Rate and S1/S2; Negative Murmur or Rub
Pulmonary: Clear and Symmetric; Negative Wheezes or Rales
Gastrointestinal: Soft, Non Tender, Non Distended and Normal Bowel Sounds
Skin: Warm and Dry; Negative Rash or Jaundice
Objective Data
Lab Data
Lab Results
10/25/23 06:33
10/25/23:33
Estimated Creat Clear 99 ml/min 10/25/23 06:33
Total Bilirubin 0.7 mg/dl (0.2-1.3) 10/25/23:33
AST 19 U/L (14-36) 10/25/23:33
ALT 14 U/L (0-35) 10/25/23:33
Alkaline Phosphatase 94 U/L (38-126) 10/25/23 06:33
Most recent labs reviewed.
Micro Results:
10/21/23 15:10 Salmonella/Shigella Culture - Final
Feces/Stool No Salmonella, Shigella, Aeromonas or Plesiomonas species
isolated.
Campylobacter Culture - Final
No Campylobacter species isolated.
Shiga Toxin Test - Final
No E. coli Shiga Toxin 1 or 2 detected.
10/21/23 15:10 C. difficile GDH Antigen & Toxins - Final
Feces/Stool Toxigenic C.difficile Positive
Care Review
Plan reviewed with: Physician (Dr Jacinto martínez)
[2023-10-25 13:58] VITALS: BP 140/73
--- NOTE | 2023-10-25 14:23 | W.PN.CRS1 ---
Today's Communication / Plan
-
Diet advancement
?discharge.
Assessment/Plan
-
C diff.
1. WBC normalized and less diarrhea.
2. diet advanced.
3. ok for discharge from my perspective.
Subjective Data
Subjective Data
Date of Service: October 25, 2023
Seen in am.
Less diarrhea.
Tolerated diet.
Objective Data
-
Vital Signs
Temp Pulse Resp BP Pulse Ox
98 F 78 16 140/73 94
10/25/23 13:58 10/25/23 13:58 10/25/23 13:58 10/25/23 13:58 10/25/23 13:58
Intake & Output
10/24/23 10/25/23 10/26/23
06:59 06:59 06:59
Intake Total 2220 / 2220 2140 / 2140 580 / 580
Balance 2220 / 2220 2140 / 2140 580 / 580
Intake:
Oral fluids 2020 / 2019 840 / 840 480 / 480
IV fluids (Total) 1200 / 1200
IV piggybacks 200 / 200 100 / 100 100 / 100
Other:
Number of approximated SMALL 2
amounts of urine
Number of approximated MODERATE 6
amounts of urine
Number of approximated LARGE 6
amounts of urine
Number of unmeasured liquid
stools
Rectum 6
Lab Results
10/25/23 06:33
10/25/23 06:33
Physical Exam
-
General: No Acute Distress
Chest: Clear
Cardiovascular: Regular Rate & Rhythm
Abdomen: Non Distended and Non Tender
--- NOTE | 2023-10-25 14:34 | W.DCSUMMARY ---
Discharge Summary
Discharge Data
Date of Admission: 10/21/23
Date of Discharge: 10/25/23
-
Pending Results: No
Hospital Course
Discharging Physician : Dr Rich Casey
Disposition : To home
Primary care physician : Unknown
Principal Discharge diagnosis :
Clostridium difficile colitis relapse
Sigmoid diverticula
Electrolyte imbalance
Hypotension
Iron deficiency anemia
Chronic Discharge diagnosis :
Hospital Course :
Patient is 58-year-old female with above-mentioned past medical history came to ER for having worsening diarrhea abdominal pain and nausea. Patient was diagnosed for diverticulitis earlier in the year and was provided course of antibiotic, after
that patient developed C. difficile colitis and was started on long tapering course of oral vancomycin. Patient finished course of vancomycin few days before coming to ER this admission. Patient stated of diarrhea being improved although not
completely resolved in interim and had rapid worsening in few days prompting repeat ER visit. Stool check again was positive for toxin producing C. difficile organisms. CT abdomen pelvis which showing possible sigmoid diverticulitis as well.
Infection disease physicians were involved in care and patient was started on fidaxomicin/Dificid therapy. Patient was also covered with Rocephin for sigmoid diverticulitis. Patient was evaluated by colorectal surgery and no clear indication of
colectomy. Patient was hypotensive at admission and required IV fluid boluses. Over next few days patient continued to have slow recovery and at discharge patient having 4-5 watery bowel movements. Patient being taken off of Rocephin/Flagyl and
being discharged on 5-day course of Dificid. Patient will get outpatient monoclonal antibody/Vowst by ID office. Patient provided prescription for probiotic and encouraged to have healthy amount of leafy vegetables in diet planning.
On side patient was also found to having iron deficiency anemia. Patient had colonoscopy 1 year back showing benign polyps only. Patient was provided IV Ferrlecit therapy in hospital. Follow-up testing and workup deferred to primary care
physician at this point.
Important imaging findings :
None
Procedure findings :
None
Discharge Plan
-
Patient Disposition: Home (Routine Discharge)
Discharge Diagnosis/Procedures: Relapse of Cdiff colitis, Sigmoid diverticulitis
Condition: Fair
Diet: Regular
Activity: As tolerated
Driving Restrictions: As prior to admission
Bathing Restrictions: OK to Shower
Activity Restrictions/Additional Instructions:
Increase green leafy vegetable intake
Referrals:
UNKNOWN - PT DOES,NOT KNOW [Family Provider] -
Susi Villarreal MD [Active] -
Prescriptions:
New
Dificid 200 mg tablet
200 mg PO BID 5 Days Qty: 10 0RF
Visbiome 900 billion cell powder in packet
1 packet PO DAILY Qty: 30 0RF
ondansetron 4 mg tablet,disintegrating
4 mg PO DAILY PRN (Reason: nausea and vomiting) 3 Days Qty: 14 0RF
Continued
therapeutic multivitamin Tablet
1 tab PO DAILY
cholecalciferol (vitamin D3) 25 mcg (1,000 unit) Tablet
25 mcg PO DAILY Qty: 0
Discharge Orders:
Discharge Patient (As Directed); Ordered 10/25/23
Ordered By: Rich Casey
Discharge Date and Time
Discharge Date/Time: 10/25/23 14:09
Print Language: SWEDISH
== END 2023-10-25 14:09 | disposition home or self-care (01) | DRG 872 ==
LOC: 3 WEST ACU 20:16
PROVIDERS: Emergency Medicine; ADMITTING PHYSICIAN Student in an Organized Health Care Education/Training Program; ATTENDING PHYSICIAN Hospitalist; CONSULT PHYSICIAN Student in an Organized Health Care Education/Training Program; EMERGENCY PHYSICIAN Emergency Medicine; OTHER PHYSICIAN Surgery
DX: A41.9 Sepsis, unspecified organism (principal); A04.71 Enterocolitis due to Clostridium difficile, recurrent; E87.1 Hypo-osmolality and hyponatremia; K57.32 Diverticulitis of large intestine without perforation or abscess without bleeding; R35.0 Frequency of micturition; E83.42 Hypomagnesemia; D50.9 Iron deficiency anemia, unspecified; E87.6 Hypokalemia; I95.9 Hypotension, unspecified
CPT/HCPCS: 74018; 74177; 80048; 80053; 81003; 81015; 82728; 83540; 83550; 83690; 83735; 85025; 85027; 87045; 87046; 87077; 87324; 87427; 87449; 96361; 96365; 96375; 99285; J2916; Q9967

== ENCOUNTER → 2023-12-04 07:34 | Outpatient (REF) | payer OTHER, SELFPAY | LOC: REG 07:34 | PROVIDERS: ATTENDING PHYSICIAN Student in an Organized Health Care Education/Training Program; FAMILY PHYSICIAN Family Medicine | DX: Z86.19 Personal history of other infectious and parasitic diseases (principal) | CPT/HCPCS: 87324; 87449 ==